=== PATIENT | male | born 1965 | race American Indian/Alaskan Native ===

== ENCOUNTER 2017-12-03 07:54 | Inpatient (IN) | payer MEDICARE, MEDICAID ==
[2017-12-03 07:54] VITALS: BMI 33.9
[2017-12-03] MEDS ORDERED: Sodium Chloride 0.9% 1,000 ML IV ONE (08:55)
[2017-12-03 09:19] LABS: BASO # 0.1 K/uL (0.0-0.2); EOS # 0.5 K/uL (0.0-0.7); EOS % 8.7 % (0.0-4.0); HEMOGLOBIN 13.8 g/dL (12.0-18.0); LYMPH # 1.2 K/uL (1.0-4.3); LYMPH % 20.5 % (20.0-40.0); MEAN CELL VOLUME 94.5 fL (80.0-94.0); MEAN CORPUSCULAR HEMOGLOBIN 31.7 pg (27.0-31.0); MEAN CORPUSCULAR HGB CONC 33.5 g/dL (33.0-37.0); MEAN PLATELET VOLUME 7.4 fL (7.2-11.7); MONO # 0.7 K/uL (0.0-0.8); MONO % 12.7 % (0.0-10.0); NEUT # 3.3 K/uL (1.8-7.0); NEUT % 57.1 % (50.0-75.0); RBC 4.34 Mil/uL (4.40-5.90); RED CELL DISTRIBUTION WIDTH 14.5 % (11.5-14.5); WHITE BLOOD COUNT 5.8 K/uL (4.8-10.8)
[2017-12-03 09:33] LABS: ALBUMIN 4.1 g/dL (3.5-5.0); ALT/SGPT 54 U/L (21-72); AST/SGOT 100 U/L (17-59); BLOOD UREA NITROGEN 12 mg/dL (9-20); GFR AFRICAN-AMERICAN > 60; GFR NON-AFRICAN AMERICAN > 60; LIPASE 31 U/L (23-300)
--- NOTE | 2017-12-03 09:35 | RAD ---
PROCEDURE: Radiographs of the chest and abdomen (obstructive series) HISTORY: vomiting COMPARISON: CT abdomen and pelvis 10/30/2013 TECHNIQUE: AP radiograph of the chest, with upright and supine radiographs of the abdomen. FINDINGS: CHEST: Lungs: Clear. Cardiovascular: Normal size heart. No pulmonary vascular congestion. Pleura: No pleural fluid. No pneumothorax. Other findings: None. ABDOMEN AND PELVIS: Bowel: Stool retention.. No evidence of mechanical obstruction. Free air: None. Bones: Bilateral sacroiliac mild sclerosis Other findings: IVC filter similar. Below this is an interval vascular stent IMPRESSION: Moderate stool retention. No mechanical obstruction The crescentic left hemidiaphragmatic air/gas is probably a small amount of gas within stomach. If clinically indicated, noncontrast CT abdomen-pelvis would be more sensitive in excluding any free air. Recommendations per clinical suspicions
[2017-12-03 09:40] LABS: B-TYPE NATRIURETIC PEPTIDE 19.4 pg/mL (0-900)
[2017-12-03 10:31] LABS: SQUAMOUS EPITHIAL < 1 /hpf (0-5); URINE BACTERIA RARE (<OCC); URINE BILIRUBIN 1+ (NEGATIVE); URINE BLOOD 2+ (NEGATIVE); URINE CALCIUM OXALATE CRYSTALS OCC /hpf (<OCC); URINE CLARITY Hazy (Clear); URINE GLUCOSE (UA) NORMAL (Normal); URINE LEUKOCYTE ESTERASE NEG Leu/uL (Negative); URINE PROTEIN 1+ mg/dL (NEGATIVE)
[2017-12-03 10:47] LABS: BARBITURATES, UR NEGATIVE (NEGATIVE); PHENCYCLIDINE, UR NEGATIVE (NEGATIVE)
[2017-12-03 10:54] LABS: URINE COLOR YELLOW (YELLOW)
[2017-12-03 11:16] LABS: BENZODIAZEPINES, UR POSITIVE (NEGATIVE); OPIATES, UR POSITIVE (NEGATIVE)
--- NOTE | 2017-12-03 11:31 | C.PDOC ---
History Of Present Illness 52yo male, presents to ER requesting detox from alcohol and heroin. Admits last sniffed heroin yesterday and now he is withdrawing. Patient reports associated nausea, vomiting, bodyaches, and sweats. He states his presentation today is similar to past episodes of withdrawal. He offers no other complaints. Time Seen by Provider: 12/03/17 08:36 Chief Complaint (Nursing): Abdominal Pain History Per: Patient History/Exam Limitations: no limitations Onset/Duration Of Symptoms: Days Current Symptoms Are (Timing): Still Present Past Medical History Reviewed: Historical Data, Nursing Documentation, Vital Signs Vital Signs: Last Vital Signs Temp 97.7 F 12/05/17 06:30 Pulse 70 12/05/17 06:30 Resp 18 12/05/17 06:30 BP 108/69 12/05/17 06:30 Pulse Ox 98 12/05/17 06:30 - Medical History PMH: Anxiety, Bipolar Disorder, Depression, Diabetes, Deep Vein Thrombosis, Hepatitis (C), HTN, Hypercholesterolemia, Schizophrenia Denies: HIV, Chronic Kidney Disease, Seizures, Sexually Transmitted Disease - [facility] Procedures CONTRAST PHLEBOGRAM-LEG (07/08/13) HEMODIALYSIS (10/28/13) INJECT/INFUSE THROMBOLYTIC AGENT (10/24/13) PLICATION OF VENA CAVA (06/13/13) Family History: States: Unknown Family Hx - Social History Hx Tobacco Use: Yes Hx Alcohol Use: Yes Hx Substance Use: Yes - Immunization History Hx Tetanus Toxoid Vaccination: No Hx Influenza Vaccination: No Hx Pneumococcal Vaccination: No Review Of Systems Except As Marked, All Systems Reviewed And Found Negative. Constitutional: Positive for: Sweats, Other (bodyaches) Cardiovascular: Negative for: Chest Pain Respiratory: Negative for: Shortness of Breath Gastrointestinal: Positive for: Nausea, Vomiting Physical Exam - Physical Exam Appears: Non-toxic Skin: Warm, Dry Head: Atraumatic, Normacephalic Eye(s): bilateral: Normal Inspection Neck: Supple Chest: Symmetrical Cardiovascular: Rhythm Regular Respiratory: Normal Breath Sounds Gastrointestinal/Abdominal: Soft, No Tenderness Extremity: Normal ROM, Pedal Edema (1+ bilateral pitting pedal edema) Neurological/Psych: Oriented x3 ED Course And Treatment - Laboratory Results Result Diagrams: 12/03/17 09:14 12/03/17 09:14 ECG: Interpreted By Me, Viewed By Me ECG Rhythm: Sinus Rhythm Interpretation Of ECG: Normal intervals, normal axis, no ST/T wave changes Rate From EC O2 Sat by Pulse Oximetry: 97 (RA) Pulse Ox Interpretation: Normal Medical Decision Making Medical Decision Making: Impression: Substance use, withdrawal Plan: -- Labs -- EKG -- IV fluids -- Zofran 4mg IV -- Protonix 40mg IV Progress: 10:00 Case discussed with crisis team who states detox bed is available. Patient is pending medical clearance. 1157 Labs reviewed and shows no clinically significant medical abnormalities. Patient medically cleared and now pending crisis evaluation. Disposition Discussed With : Amish Deshpande Doctor Will See Patient In The: Hospital Counseled Patient/Family Regarding: Studies Performed, Diagnosis - Disposition Disposition: HOSPITALIZED Disposition Time: 12:26 Condition: FAIR - Clinical Impression Clinical Impression: Opiate abuse, continuous, Alcohol abuse - Scribe Statement The provider has reviewed the documentation as recorded by the Scribe (Shakira Watt) Provider Attestation: All medical record entries made by the Scribe were at my direction and personally dictated by me. I have reviewed the chart and agree that the record accurately reflects my personal performance of the history, physical exam, medical decision making, and the department course for this patient. I have also personally directed, reviewed, and agree with the discharge instructions and disposition.
[2017-12-03] MEDS ORDERED: Aluminum Hydroxide/Magnesium Hydroxide Susp (30 mL) PO PRN (12:47)
--- NOTE | 2017-12-03 14:27 | PCM.BM ---
<Loida Champagne - Last Filed: 12/03/17 14:26> Treatment Plan Problems - Problems identified on initial assessmt Potential for opiate withdrawal Date Initiated: 12/03/17 Assessment reference: NA Treatment assets and liabiliti Patient Assests: self-reliant, negotiates basic needs Patient Liabilities: substance abuse - Milieu Protocol Maintain good personal hygiene: daily Encourage regular showers, daily Remind patient to perform daily oral care, daily Assist patient to perform ADL's, other Encourage regular showers, other Remind patient to perform daily oral care , other Assist patient to perform ADL's Maintain personal safety: daily Educate patient to report safety concerns to staff, daily Monitor environment for contraband/sharps, other Educate patient to report safety concerns to staff, other Monitor environment for contraband/ sharps Medication safety: Monitor for expected outcome, potential side effects: other, daily, Assess barriers to learning: other, daily, Assess readiness for medication education: other, daily <Amish Deshpande - Last Filed: 12/04/17 08:33> - Diagnosis (1) Opiate abuse, continuous Status: Acute Interventions: 12/04/17 08:33 * Assess 7x/week regarding severity of withdrawal * Educate regarding risks, benefits, side effects and alternatives of medications * Use Motivational Interviewing for abstinence * Use CBT for relapse prevention * Medication management for withdrawal symptoms * Encourage medication assisted treatment *
--- NOTE | 2017-12-03 14:34 | PCM.PSYCH ---
Initial Psychiatric Evaluation - Initial Psychiatric Evaluation Type of Admission: Voluntary Legal Status: Capacity Chief Complaint (in patient's own words): "I'm withdrawing" History of Present Illness and Precipitating Events: The patient is seen, chart reviewed and case discussed. This is a 52-year-old -Italian male, single with 3 children, lives with mother and unemployed. The patient is using Xanax 3 sticks a day; 6 mg per day. He also uses 8 bags heroin intranasally. He said he started "about 20-30 years ago." He was in detox 3 times in the past but no rehabilitation. He says he was on methadone maintenance in [place] and his dose was 80 mg, but it was 5 years ago. He denies other drug and alcohol use. Past psych history: He was diagnosed with bipolar disorder and hospitalized once , "long ago." He uses Seroquel up to 300 mg a day. Howveer, he does not report any manic episodes, and he is likely misdiagnosed. He, however, endorse past history of depression and is still somewhat depressed b/c of "drug use." He also reports anxiety. Medical history: He had blood clots (DVT) in the past and is on Xarelta. No other illness and he is stable and uneventful with the medication regimen. Family psych history: Fa used heroin, mo had mental illness. Current Medications: Active Medications Generic Name Dose Route Start Last Admin Trade Name Freq PRN Reason Stop Dose Admin Al Hydrox/Mg Hydrox/Simethicone 30 ml 12/03/17 12:47 Maalox 30 Ml PO TID PRN Indigestion / Heartburn Chlordiazepoxide 25 mg 12/03/17 14:00 Librium PO 12/08/17 13:59 Q6H HEIDI Taper Chlordiazepoxide 25 mg 12/03/17 12:45 Librium PO Q4H PRN Alcohol Withdrawal Clonidine HCl 0.1 mg 12/03/17 12:45 Catapres PO Q4H PRN Symptoms of alcohol withdrawl Folic Acid 1 mg 12/03/17 12:45 Folic Acid PO DAILY HEIDI Hydroxyzine HCl 50 mg 12/03/17 12:48 Atarax PO Q6H PRN Anxiety Ibuprofen 600 mg 12/03/17 12:48 Motrin Tab PO Q6H PRN Pain, moderate (4-7) Loperamide HCl 2 mg 12/03/17 12:47 Imodium PO Q8 PRN Diarrhea Methadone HCl 25 mg 12/03/17 15:00 Methadone PO 12/03/17 15:01 ONCE ONE Multivitamins 1 tab 12/03/17 12:45 Hexavitamin PO DAILY [facility] Ondansetron HCl 4 mg 12/03/17 12:47 Zofran Tab PO Q8 PRN Nausea/Vomiting Thiamine HCl 100 mg 12/03/17 12:45 Vitamin B1 Tab PO DAILY HEIDI Trazodone HCl 100 mg 12/03/17 22:00 Desyrel PO HS HEIDI Past Psychiatric History - Past Psychiatric History Previous Treatment History: Inpatient Pertinent Medical Hx (Current Medical&Sleep Prob, Allergies): Allergies Allergy/AdvReac Type Severity Reaction Status Date / Time ibuprofen [From Motrin] Allergy Intermediate Verified 12/03/17 08:12 tomato Allergy Intermediate Verified 12/03/17 08:12 SEROquel 12/03/17 Xarelto 12/03/17 traZODone 12/03/17 Review of Systems - Psychiatric Psychiatric: Abnormal Sleep Pattern, Anxiety, Difficulty Concentrating. absent : Hallucinations, Homicidal Ideation, Paranoia, Suicidal Ideation Mental Status Examination - Personal Presentation Personal Presentation: Looks stated age - Affect Affect: Constricted - Motor Activity Motor Activity: Calm - Reliability in Providing Information Reliability in Providing Information: Good - Speech Speech: Organized - Mood Mood: Anxious - Formal Thought Process Formal Thought Process: No Impairment - Cognitive Functions Orientation: Person, Place, Situation, Time Sensorium: Alert Attention/Concentration: Easily distracted Estimate of Intelligence: Average Judgement: Intact, as evidence by: Insight regarding need for hospitalization Memory: Recent intact, as evidence by: Ability to recall events of the day, Remote intact, as evidenced by: Abilit to recall sig. 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 Attend groups and activities Supportive therapy and psychoeducation [place] for abstinence CBT for relapse prevention Encourage MAT Refer to rehab or IOP, and self-help groups Smoking cessation with [place] Nicotine patch if needed 34 min Projected ELOS: 5-6 days Prognosis: good with treatment, incl. MAT or rehab - Smoking Cessation Smoking Cessation Initiated: Yes
[2017-12-03] MEDS: Multiple Vitamins Tab PO SCH (21:06)
[2017-12-04] MEDS: Multiple Vitamins Tab PO SCH (09:31)
--- NOTE | 2017-12-04 13:39 | PCM.PYCHPN ---
Psychiatric Progress Note - Psychiatric Progress Note Patient seen today, length of contact: 19 minutes Patient Chief Complaint: "I'm not well" Problems Identified/Issues Discussed: The pt is seen, chart reviewed, case discussed with staff. The pt is compliant with medications and reports no side-effects. Symptoms are improving but needs more time to stabilize. After care discussed, support and psychoeducation given. He said he was rejected by several rehabs because of his blood thinner. Diagnoses of bipolar disorder is also reviewed and he is likely not bipolar. Remeron it is for ongoing depressive symptoms. Medication Change: Yes (Detox changes daily) Medical Record Reviewed: Yes Mental Status Examination - Cognitive Function Orientation: Person, Place, Situation, Time Memory: Impaired Attention: Poor Concentration: Poor Association: WNL Fund of Knowledge: WNL - Mood Mood: Anxious - Affect Affect: Constricted - Speech Speech: Appropriate - Formal Thought Process Formal Thought Process: No Impairment - Suicidal Ideation Suicidal Ideation: No - Homicidal Ideation Homicidal Ideation: No Goal/Treatment Plan - Goal/Treatment Plan Need for Continued Stay: Discharge may exacerbated symptoms, Severe functional impairment Progress Toward Problem(s) and Goals/Treatment Plan: Taper with methadone and librium Gabapentin for augmentation and anxiety Seroquel 200 and remeron 15 (later 30 mg) for depression and insomnia As needed medications All risks, benefits and alternatives of the meds discussed, and the pt agreed and understood. Attend groups and activities Supportive therapy and psychoeducation [place] for abstinence CBT for relapse prevention Encourage MAT Refer to rehab or IOP, and self-help groups Smoking cessation with [place] Nicotine patch if needed Estimated Date of D/C: 12/08/17 - Smoking Cessation Smoking Cessation Initiated: Yes
[2017-12-05] MEDS: Multiple Vitamins Tab PO SCH (10:31)
--- NOTE | 2017-12-05 10:43 | PCM.PYCHPN ---
Psychiatric Progress Note - Psychiatric Progress Note Patient seen today, length of contact: 16 minutes Patient Chief Complaint: "I still have withdrawal symptoms" Problems Identified/Issues Discussed: The pt is seen, chart reviewed, case discussed with staff. The pt is compliant with medications and reports no side-effects. Symptoms are improving but needs more time to stabilize. After care discussed, support and psychoeducation given. Diagnostic Results: Opioid use disorder, severe, dependence, Opioid withdrawal symptoms Hypnotic/Sedative use disorder, Medication Change: Yes (Detox changes daily) Medical Record Reviewed: Yes Mental Status Examination - Cognitive Function Orientation: Person, Place, Situation, Time Memory: Impaired Attention: Poor Concentration: Poor Association: WNL Fund of Knowledge: WNL Decription of patient's judgement and insights: fair/fair - Mood Mood: Anxious - Affect Affect: Constricted - Speech Speech: Appropriate - Formal Thought Process Formal Thought Process: No Impairment Psychotic Thoughts and Behaviors: denied - Suicidal Ideation Suicidal Ideation: No Plan: denied - Homicidal Ideation Homicidal Ideation: No Goal/Treatment Plan - Goal/Treatment Plan Need for Continued Stay: Discharge may exacerbated symptoms, Severe functional impairment Progress Toward Problem(s) and Goals/Treatment Plan: Continue current management and medications. Patient educated about risks, benefits, side effects & alternatives of meds. Pt verbalized understanding & agreed with the above. Therapy in milieu. Estimated Date of D/C: 12/08/17
--- NOTE | 2017-12-05 12:07 | CARD ---
APPROVED REPORT EKG Measurement Heart [id number] <Conclusion> Normal sinus rhythm Normal ECG
[2017-12-06] MEDS: Multiple Vitamins Tab PO SCH (09:54)
--- NOTE | 2017-12-06 10:31 | PCM.PYCHPN ---
Psychiatric Progress Note - Psychiatric Progress Note Patient seen today, length of contact: 16 minutes Patient Chief Complaint: "I little better than yesterday" Problems Identified/Issues Discussed: The pt is seen, chart reviewed, case discussed with staff. The pt is compliant with medications. He denied side-effects. Symptoms are improving but needs more time to stabilize. He wants to discharge to rehab program. After care discussed, support and psychoeducation given. Diagnostic Results: Opioid use disorder, severe, dependence, Opioid withdrawal symptoms Hypnotic/Sedative use disorder, Medication Change: Yes (Detox changes daily) Medical Record Reviewed: Yes Mental Status Examination - Cognitive Function Orientation: Person, Place, Situation, Time Memory: Impaired Attention: Poor Concentration: Poor Association: WNL Fund of Knowledge: WNL Decription of patient's judgement and insights: fair/good - Mood Mood: Anxious - Affect Affect: Constricted - Speech Speech: Appropriate - Formal Thought Process Formal Thought Process: No Impairment Psychotic Thoughts and Behaviors: denied - Suicidal Ideation Suicidal Ideation: No Plan: denied - Homicidal Ideation Homicidal Ideation: No Plan: denied Goal/Treatment Plan - Goal/Treatment Plan Need for Continued Stay: Discharge may exacerbated symptoms, Severe functional impairment Progress Toward Problem(s) and Goals/Treatment Plan: Continue current management and medications. Patient educated about risks, benefits, side effects & alternatives of meds. Pt verbalized understanding & agreed with the above. Therapy in milieu. Estimated Date of D/C: 12/08/17
[2017-12-06] MEDS ORDERED: Propofol 10 mg/ml Inj (20 ML) ONE (19:31)
[2017-12-06] MEDS ORDERED: Midazolam 2 MG/2 ML VIAL ONE (19:31)
[2017-12-06] MEDS ORDERED: Succinylcholine Chloride 20 mg/ml Syr (5 ml) IV ONE (19:32)
[2017-12-06] MEDS ORDERED: Rocuronium 10 mg/ml (5 ml) ONE ×2 (19:32→20:26)
[2017-12-06] MEDS ORDERED: Neostigmine Methylsulfate 3mg/3ml Syringe IV ONE (20:36)
[2017-12-07] MEDS: Multiple Vitamins Tab PO SCH (10:54)
--- NOTE | 2017-12-07 14:37 | PCM.PYCHPN ---
Psychiatric Progress Note - Psychiatric Progress Note Patient seen today, length of contact: 16 minutes Patient Chief Complaint: "I still need help but I am getting better" Problems Identified/Issues Discussed: Patient is seen and evaluated, chart reviewed, and discussed with nurse. Patient is feeling better in terms of his mood but still complains of mild depression. He has been sleeping well and eating well. His withdrawal symptoms are improving. Patient still intends on going to senior care rehab. Patient denies suicidal and homicidal ideations. Patient continues to go to group activities. Patient is taking medications and denies any side effects. Supportive therapy and psychoeducation were given. After care discussed. Medication Change: Yes (Detox changes daily) Medical Record Reviewed: Yes Mental Status Examination - Cognitive Function Orientation: Person, Place, Situation, Time Memory: Impaired Attention: Poor Concentration: Poor Association: WNL Fund of Knowledge: WNL - Mood Mood: Anxious - Affect Affect: Constricted - Speech Speech: Appropriate - Formal Thought Process Formal Thought Process: No Impairment - Suicidal Ideation Suicidal Ideation: No - Homicidal Ideation Homicidal Ideation: No Goal/Treatment Plan - Goal/Treatment Plan Need for Continued Stay: Discharge may exacerbated symptoms, Severe functional impairment Progress Toward Problem(s) and Goals/Treatment Plan: Taper with methadone and librium Gabapentin for augmentation and anxiety Seroquel 200 and remeron 15 (later 30 mg) for depression and insomnia As needed medications All risks, benefits and alternatives of the meds discussed, and the pt agreed and understood. Attend groups and activities Supportive therapy and psychoeducation [place] for abstinence CBT for relapse prevention Encourage MAT Refer to rehab or IOP, and self-help groups Smoking cessation with [place] Nicotine patch if needed Estimated Date of D/C: 12/08/17
[2017-12-07 16:20] VITALS: RESP 18
[2017-12-08] MEDS: Multiple Vitamins Tab PO SCH (09:51)
--- NOTE | 2017-12-08 13:00 | PCM.PYCHPN ---
Psychiatric Progress Note - Psychiatric Progress Note Patient seen today, length of contact: 16 minutes Patient Chief Complaint: "I am very nervous" Problems Identified/Issues Discussed: The pt is seen, chart reviewed, case discussed with staff. The pt is compliant with medications and reports no side-effects. Symptoms are improving but needs more time to stabilize. After care discussed, support and psychoeducation given. Medication Change: Yes (Detox changes daily) Medical Record Reviewed: Yes Mental Status Examination - Cognitive Function Orientation: Person, Place, Situation, Time Memory: Impaired Attention: WNL Concentration: Poor Association: WNL Fund of Knowledge: WNL - Mood Mood: Anxious - Affect Affect: Constricted - Speech Speech: Appropriate - Formal Thought Process Formal Thought Process: No Impairment - Suicidal Ideation Suicidal Ideation: No - Homicidal Ideation Homicidal Ideation: No Goal/Treatment Plan - Goal/Treatment Plan Need for Continued Stay: Discharge may exacerbated symptoms, Severe functional impairment Progress Toward Problem(s) and Goals/Treatment Plan: Taper with methadone and librium Gabapentin for augmentation and anxiety Seroquel 200 and remeron 30 mg for depression and insomnia As needed medications All risks, benefits and alternatives of the meds discussed, and the pt agreed and understood. Attend groups and activities Supportive therapy and psychoeducation [place] for abstinence CBT for relapse prevention Encourage MAT Refer to rehab or IOP, and self-help groups Smoking cessation with [place] Nicotine patch if needed Estimated Date of D/C: 12/08/17
[2017-12-09 05:37] VITALS: TEMP 97.6
--- NOTE | 2017-12-09 08:37 | PCM.PYCHDC ---
Mental Status Examination - Mental Status Examination Orientation: Person, Place, Situation, Time Memory: Intact Mood: Anxious Affect: Constricted Speech: Appropriate Attention: WNL Concentration: WNL Association: WNL Fund of Knowledge: WNL Formal Thought Process: No Impairment Suicidal Ideation: No Current Homicidal Ideation?: No Discharge Summary - Discharge Note Reason for Hospitalization: Opioid detox Consultations:: List each consultation separately and include: 1. Reason for request. 2. Findings. 3. Follow-up Summary of Hospital Course include:: 1. Description of specific treatment plan utilized for patients during their course of treatmen. 2. Summarize the time- course for resolution of acute symptoms and/or regressed behaviors. 3. Describe issues identified and worked on during hospitalization. 4. Describe medication utilized. 5. Describe medical problems identified and treated. 6. Reassessment of suicide risk Summary of Hospital Course: The patient is seen, chart reviewed and case discussed. On admission: This is a 52-year-old -[place]izen [place] male, single with 3 children, lives with mother and unemployed. The patient is using Xanax 3 sticks a day; 6 mg per day. He also uses 8 bags heroin intranasally. He said he started "about 20-30 years ago." He was in detox 3 times in the past but no rehabilitation. He says he was on methadone maintenance in [place] and his dose was 80 mg, but it was 5 years ago. He denies other drug and alcohol use. Past psych history: He was diagnosed with bipolar disorder and hospitalized once , "long ago." He uses Seroquel up to 300 mg a day. Howveer, he does not report any manic episodes, and he is likely misdiagnosed. He, however, endorse past history of depression and is still somewhat depressed b/c of "drug use." He also reports anxiety. Medical history: He had blood clots (DVT) in the past and is on Xarelto. No other illness and he is stable and uneventful with the medication regimen. Family psych history: Fa used heroin, mo had mental illness. Hospital course: The pt was admitted and started on treatment with psychotherapy, support, psychoeducation and medications. [place] and CBT used. The pt attended groups and activities, as well as milieu therapy. All the risks and benefits of medications are discussed and the patient understood and agreed. The pt improved with the treatments provided. After care discussed with the patient. Pt will go to [facility]. 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 Follow after care plan as discussed. Use relapse prevention skills Return to ER or call 911 if suicidal, homicidal or symptoms relapse. Stay away from stress, alcohol and drugs. See primary doctor regularly and get labs. Prescriptions/Medication Reconciliation: Mirtazapine [Remeron] 30 mg PO HS #30 tab QUEtiapine [SEROquel] 200 mg PO HS #30 tab Rivaroxaban [Xarelto] 20 mg PO DAILY #30 tab - Smoking Cessation Smoking Cessation Medication prescribed: No - Antipsychotic Medications Pt discharged on 2 or more routine antipsychotic medications: No
[2017-12-09 09:06] VITALS: BP 127/87; PULSE 74; O2SAT 97
[2017-12-09] MEDS: Multiple Vitamins Tab PO SCH (09:21)
== END 2017-12-09 10:30 | disposition home or self-care (01) | DRG 885 ==
LOC: C.ER 07:54 → C.7D 12:26
PROVIDERS: ADMIT Psychiatry & Neurology Psychiatry; ATTEND Psychiatry & Neurology Psychiatry
PROC: HZ2ZZZZ Detoxification Services for Substance Abuse Treatment (ICD-10-PCS; principal; 2017-12-03)
DX: F33.1 Major depressive disorder, recurrent, moderate (principal); F11.23 Opioid dependence with withdrawal; F41.9 Anxiety disorder, unspecified; G47.00 Insomnia, unspecified; I10 Essential (primary) hypertension; Z87.891 Personal history of nicotine dependence; F31.9 Bipolar disorder, unspecified; F10.10 Alcohol abuse, uncomplicated; E78.00 Pure hypercholesterolemia, unspecified; E11.9 Type 2 diabetes mellitus without complications; F19.10 Other psychoactive substance abuse, uncomplicated

== ENCOUNTER 2018-01-06 20:08 | Inpatient (IN) | payer MEDICARE, OTHER ==
[2018-01-06 20:09] VITALS: BMI 33.9
[2018-01-06] MEDS ORDERED: Sodium Chloride 0.9% 1,000 ML IV ONE (20:55)
--- NOTE | 2018-01-06 20:58 | C.PDOC ---
History Of Present Illness 52 year old male patient with a PMHx of diabetes and heroin abuse presents to the ER with complaints of painful, swollen legs. Patient reports that he can not walk properly and did not check his glucose and is not sure if it is high. His last heroin use was this morning. Patient denies fever, chills, dizziness, or abdominal pain. Time Seen by Provider: 01/06/18 20:51 Chief Complaint (Nursing): Lower Extremity Problem/Injury History Per: Patient History/Exam Limitations: no limitations Onset/Duration Of Symptoms: Hrs - Ankle/Foot Currently Unable To: Other (walk properly) Past Medical History Reviewed: Historical Data, Nursing Documentation, Vital Signs Vital Signs: Last Vital Signs Temp 99.6 F 01/06/18 22:54 Pulse 96 H 01/06/18 22:54 Resp 16 01/06/18 22:54 BP 141/96 H 01/06/18 22:54 Pulse Ox 96 01/06/18 22:54 - Medical History PMH: Anxiety, Bipolar Disorder, Depression, Diabetes, Deep Vein Thrombosis, Hepatitis (C), HTN, Hypercholesterolemia, Schizophrenia - [facility] Procedures CONTRAST PHLEBOGRAM-LEG (07/08/13) DETOXIFICATION SERVICES FOR SUBSTANCE ABUSE TREATMENT (12/03/17) HEMODIALYSIS (10/28/13) INJECT/INFUSE THROMBOLYTIC AGENT (10/24/13) PLICATION OF VENA CAVA (06/13/13) Family History: States: Unknown Family Hx - Social History Hx Tobacco Use: Yes Hx Alcohol Use: Yes Hx Substance Use: Yes - Immunization History Hx Tetanus Toxoid Vaccination: No Hx Influenza Vaccination: No Hx Pneumococcal Vaccination: No Review Of Systems Constitutional: Negative for: Fever, Chills Gastrointestinal: Negative for: Abdominal Pain Musculoskeletal: Positive for: Other (bilateral swollen, painful legs) Neurological: Negative for: Dizziness Physical Exam - Physical Exam Appears: Non-toxic, No Acute Distress Skin: Normal Color, Warm, Dry Head: Atraumatic, Normacephalic Eye(s): bilateral: Normal Inspection Nose: Normal Oral Mucosa: Moist Neck: Normal ROM, Supple Chest: Symmetrical, No Deformity Cardiovascular: Rhythm Regular Respiratory: Normal Breath Sounds, No Rales, No Rhonchi, No Wheezing Gastrointestinal/Abdominal: Soft, No Tenderness Extremity: Tenderness (diffuse tendernss), Swelling (swelling on both legs up to the groin area. Left leg is worse than right leg. ) Pulses: Left Dorsalis Pedis: Normal, Right Dorsalis Pedis: Normal Neurological/Psych: Oriented x3, Normal Speech Gait: Steady ED Course And Treatment - Laboratory Results Result Diagrams: 01/06/18 21:07 01/06/18 21:06 Lab Interpretation: No Acute Changes O2 Sat by Pulse Oximetry: 100 (RA) Pulse Ox Interpretation: Normal - Physician Consult Information Time Consulting Physician Contacted: 22:57 Physician Contacted: Merle Napier Outcome Of Conversation: Patient to be admitted for bilateral cellulitis of lower extremities. Medical Decision Making Medical Decision Making: Impression: bilaterally swollen and painful legs. Plan: -- blood work -- drug screen -- IV fluids -- UA -- pending sobriety Disposition - Disposition Disposition: HOSPITALIZED Disposition Time: 22:57 Condition: STABLE - POA Present On Arrival: None - Clinical Impression Clinical Impression: Heroin abuse, Diabetes, Bilateral cellulitis of lower leg - Scribe Statement The provider has reviewed the documentation as recorded by the Aiyana Mayfield Do Provider Attestation: All medical record entries made by the Aiyana were at my direction and personally dictated by me. I have reviewed the chart and agree that the record accurately reflects my personal performance of the history, physical exam, medical decision making, and the department course for this patient. I have also personally directed, reviewed, and agree with the discharge instructions and disposition.
[2018-01-06 21:13] LABS: BASO # 0.1 K/uL (0.0-0.2); BASO % 1.1 % (0.0-2.0); EOS # 0.5 K/uL (0.0-0.7); EOS % 8.1 % (0.0-4.0); HEMOGLOBIN 13.2 g/dL (12.0-18.0); LYMPH # 1.1 K/uL (1.0-4.3); LYMPH % 18.1 % (20.0-40.0); MEAN CELL VOLUME 94.8 fL (80.0-94.0); MEAN CORPUSCULAR HEMOGLOBIN 32.1 pg (27.0-31.0); MEAN CORPUSCULAR HGB CONC 33.9 g/dL (33.0-37.0); MEAN PLATELET VOLUME 6.6 fL (7.2-11.7); MONO # 0.7 K/uL (0.0-0.8); MONO % 11.7 % (0.0-10.0); NEUT # 3.7 K/uL (1.8-7.0); NRBC % 0.1 % (0.0-2.0); RBC 4.12 Mil/uL (4.40-5.90); RED CELL DISTRIBUTION WIDTH 15.2 % (11.5-14.5)
[2018-01-06] MEDS ORDERED: Sodium Chloride 0.9% 1,000 ML ONE (21:17)
[2018-01-06 21:21] LABS: VENOUS BLOOD GAS BASE EXCESS 0.4 mmol/L (0.0-2.0); VENOUS BLOOD GAS PCO2 57 mmHg (40-60); VENOUS BLOOD GAS PO2 23 mm/Hg (30-55)
[2018-01-06 21:27] LABS: ALB/GLOB RATIO 1.3 (1.0-2.1); ALBUMIN 4.3 g/dL (3.5-5.0); ALT/SGPT 33 U/L (21-72); AST/SGOT 30 U/L (17-59); BLOOD UREA NITROGEN 10 mg/dL (9-20); CALCIUM 8.8 mg/dl (8.6-10.4); GFR AFRICAN-AMERICAN > 60; GFR NON-AFRICAN AMERICAN > 60
[2018-01-07] MEDS: Dextrose 5%/0.45% NS 1,000 ML IV SCH ×2 (01:01→15:23)
[2018-01-07] MEDS: Vancomycin 1 gm/NS 200 ml 1 GM/200 ML BAG IVPB SCH (01:30)
[2018-01-07 01:46] VITALS: RESP 20
[2018-01-07] MEDS: Piperacill/Tazo 3.375gm in Dex 3.375 GM/50 ML BAG IVPB SCH ×3 (05:24→21:28)
[2018-01-07] MEDS ORDERED: (Novolog) Insulin Aspart, Recombinant 100 u/ml 10 ml vial SC SCH (07:30)
[2018-01-07] MEDS: (Novolog) Insulin Aspart, Recombinant 100 u/ml 10 ml vial SC SCH ×4 (07:30→21:24)
[2018-01-07] MEDS: Pantoprazole 40 mg EC Tab PO SCH (11:46)
[2018-01-07] MEDS: Enoxaparin 40 mg Syringe SC SCH ×2 (11:53→12:27)
--- NOTE | 2018-01-07 13:40 | CP.PCM.HP ---
Past Patient History - Infectious Disease Hx of Infectious Diseases: None - Past Medical History & Family History Past Medical History?: Yes - Past Social History Smoking Status: Light Smoker < 10 Cigarettes Daily - CARDIAC Hx Cardiac Disorders: Yes Hx Hypercholesterolemia: Yes Hx Hypertension: Yes - PULMONARY Hx Respiratory Disorders: No Hx Tuberculosis: No - NEUROLOGICAL Hx Neurological Disorder: No Hx Seizures: No - HEENT Hx HEENT Problems: No - RENAL Hx Chronic Kidney Disease: No - ENDOCRINE/METABOLIC Hx Endocrine Disorders: Yes (DMII) Hx Diabetes Mellitus Type 2: Yes - HEMATOLOGICAL/ONCOLOGICAL Hx Blood Disorders: No Hx Human Immunodeficiency Virus (HIV): No - INTEGUMENTARY Hx Dermatological Problems: No - MUSCULOSKELETAL/RHEUMATOLOGICAL Hx Musculoskeletal Disorders: Yes Hx Falls: Yes - GASTROINTESTINAL Hx Gastrointestinal Disorders: No - GENITOURINARY/GYNECOLOGICAL Hx Genitourinary Disorders: No Hx Sexually Transmitted Disorders: No - PSYCHIATRIC Hx Psychophysiologic Disorder: Yes Hx Anxiety: Yes Hx Substance Use: Yes (Heroine) - SURGICAL HISTORY Hx Surgeries: Yes Hx Vascular Surgery: Yes Hx Vascular Access Device: Yes - ANESTHESIA Hx Anesthesia: Yes Hx Anesthesia Reactions: No Hx Malignant Hyperthermia: No Meds Allergies/Adverse Reactions: Allergies Allergy/AdvReac Type Severity Reaction Status Date / Time ibuprofen [From Motrin] Allergy Intermediate Verified 01/06/18 20:17 tomato Allergy Intermediate Verified 01/06/18 20:17 Physical Exam - Constitutional Appears: Well - Head Exam Head Exam: ATRAUMATIC, NORMAL INSPECTION, NORMOCEPHALIC - Eye Exam Eye Exam: EOMI, Normal appearance, PERRL Pupil Exam: NORMAL ACCOMODATION, PERRL - ENT Exam ENT Exam: Mucous Membranes Moist, Normal Exam - Neck Exam Neck exam: Positive for: Normal Inspection - Respiratory Exam Respiratory Exam: Decreased Breath Sounds - Cardiovascular Exam Cardiovascular Exam: REGULAR RHYTHM, +S1, +S2 - GI/Abdominal Exam GI & Abdominal Exam: Diminished Bowel Sounds, Soft - Rectal Exam Rectal Exam: Deferred Results - Vital Signs Recent Vital Signs: Last Vital Signs Temp 98.2 F 01/07/18 08:25 Pulse 81 01/07/18 08:25 Resp 20 01/07/18 08:25 BP 126/80 01/07/18 08:25 Pulse Ox 97 01/07/18 08:25 - Labs Result Diagrams: 01/06/18 21:07 01/06/18 21:06 Labs: Laboratory Results - last 24 hr 01/06/18 01/06/18 01/06/18 21:06 21:07 21:15 WBC 6.0 RBC 4.12 L Hgb 13.2 Hct 39.1 MCV 94.8 H MCH 32.1 H MCHC 33.9 RDW 15.2 H Plt Count 218 MPV 6.6 L Neut % (Auto) 61.0 Lymph % (Auto) 18.1 L Hunt % (Auto) 11.7 H Eos % (Auto) 8.1 H Baso % (Auto) 1.1 Neut # (Auto) 3.7 Lymph # (Auto) 1.1 Hunt # (Auto) 0.7 Eos # (Auto) 0.5 Baso # (Auto) 0.1 pO2 23 L VBG pH 7.30 L VBG pCO2 57 VBG HCO3 23.5 VBG Total CO2 29.7 H VBG O2 Sat (Calc) 46.3 VBG Base Excess 0.4 VBG Potassium 3.8 Glucose 125 H Lactate 1.3 Sodium 143 139.0 Potassium 4.1 Chloride 103 106.0 Carbon Dioxide 28 Anion Gap 16 BUN 10 Creatinine 1.0 Est GFR ( Amer) > 60 Est GFR (Non-Af Amer) > 60 POC Glucose (mg/dL) Random Glucose 129 H Calcium 8.8 Total Bilirubin 0.8 AST 30 ALT 33 Alkaline Phosphatase 79 Total Protein 7.7 Albumin 4.3 Globulin 3.4 Albumin/Globulin Ratio 1.3 Venous Blood Potassium 3.8 Alcohol, Quantitative < 10 01/07/18 01/07/18 07:10 11:03 WBC RBC Hgb Hct MCV MCH MCHC RDW Plt Count MPV Neut % (Auto) Lymph % (Auto) Hunt % (Auto) Eos % (Auto) Baso % (Auto) Neut # (Auto) Lymph # (Auto) Hunt # (Auto) Eos # (Auto) Baso # (Auto) pO2 VBG pH VBG pCO2 VBG HCO3 VBG Total CO2 VBG O2 Sat (Calc) VBG Base Excess VBG Potassium Glucose Lactate Sodium Potassium Chloride Carbon Dioxide Anion Gap BUN Creatinine Est GFR ( Amer) Est GFR (Non-Af Amer) POC Glucose (mg/dL) 119 H 157 H Random Glucose Calcium Total Bilirubin AST ALT Alkaline Phosphatase Total Protein Albumin Globulin Albumin/Globulin Ratio Venous Blood Potassium Alcohol, Quantitative
--- NOTE | 2018-01-07 19:08 | CP.PCM.CON ---
History of Present Illness - History of Present Illness History of Present Illness: 52 year old male patient with a PMHx of diabetes and heroin abuse presents to the ER with complaints of painful, swollen legs. Patient reports that he can not walk properly and did not check his glucose and is not sure if it is high. His last heroin use was this morning. Patient denies fever, chills, dizziness, or abdominal pain. ID consulted for antibiotic management - Medical History PMH: Anxiety, Bipolar Disorder, Depression, Diabetes, Deep Vein Thrombosis, Hepatitis (C), HTN, Hypercholesterolemia, Schizophrenia - [facility] Procedures CONTRAST PHLEBOGRAM-LEG (07/08/13) DETOXIFICATION SERVICES FOR SUBSTANCE ABUSE TREATMENT (12/03/17) HEMODIALYSIS (10/28/13) INJECT/INFUSE THROMBOLYTIC AGENT (10/24/13) PLICATION OF VENA CAVA (06/13/13) Review of Systems - Constitutional Constitutional: As Per HPI - EENT Eyes: absent: As Per HPI, Blind Spots, Blurred Vision, Change in Vision, Decreased Night Vision, Diplopia, Discharge, Dry Eye, Exophthalmos, Floaters, Irritation, Itchy Eyes, Loss of Peripheral Vision, Pain, Photophobia, Requires Corrective Lenses, Sees Flashes, Spots in Vision, Tunnel Vision, Other Visual Disturbances, Loss of Vision, Other Ears: absent: As Per HPI, Decreased Hearing, Ear Discharge, Ear Pain, Tinnitus, Abnormal Hearing, Disequilibrium, Dizziness, Other Nose/Mouth/Throat: absent: As Per HPI, Epistaxis, Nasal Congestion, Nasal Discharge, Nasal Obstruction, Nasal Trauma, Nose Pain, Post Nasal Drip, Sinus Pain, Sinus Pressure, Bleeding Gums, Change in Voice, Dental Pain, Dry Mouth, Dysphagia, Halitosis, Hoarsness, Lip Swelling, Mouth Lesions, Mouth Pain, Odynophagia, Sore Throat, Throat Swelling, Tongue Swelling, Facial Pain, Neck Pain, Neck Mass, Other - Cardiovascular Cardiovascular: absent: As Per HPI, Acrocyanosis, Chest Pain, Chest Pain at Rest , Chest Pain with Activity, Claudication, Diaphoresis, Dyspnea, Dyspnea on Exertion, Edema, Irregular Heart Rhythm, Pain Radiating to Arm/Neck/Jaw, Leg Edema, Leg Ulcers, Lightheadedness, Orthopnea, Palpitations, Paroxysmal Nocturnal Dyspnea, Pedal Edema, Radiating Pain, Rapid Heart Rate, Slow Heart Rate, Syncope, Other - Respiratory Respiratory: absent: As Per HPI, Cough, Dyspnea, Hemoptysis, Dyspnea on Exertion , Wheezing, Snoring, Stridor, Pain on Inspiration, Chest Congestion, Excessive Mucous Production, Change in Mucous Color, Pain with Coughing, Other - Gastrointestinal Gastrointestinal: absent: As Per HPI, Abdominal Pain, Belching, Bloating, Change in Bowel Habits, Change in Stool Character, Coffee Ground Emesis, Constipation, Cramping, Diarrhea, Dyspepsia, Dysphagia, Early Satiety, Excessive Flatus, Fecal Incontinence, Heartburn, Hematemesis, Hematochezia, Loose Stools, Melena, Nausea, Odynophagia, Temesmus, Vomiting, Other - Genitourinary Genitourinary: absent: As Per HPI, Change in Urinary Stream, Difficulty Urinating, Dysuria, Flank Pain, Hematuria, Pyuria, Nocturia, Urinary Incontinence, Urinary Frequency, Urinary Hesitance, Urinary Urgency, Voiding Freq/Small Amts, Freq UTI, Hx Renal/Bladder Calculi, Hx /Renal Surgery, Bladder Distension, Other - Musculoskeletal Musculoskeletal: As Per HPI - Integumentary Integumentary: As Per HPI, Skin Pain, Wounds - Neurological Neurological: absent: As Per HPI, Abnormal Gait, Abnormal Hearing, Abnormal Movements, Abnormal Speech, Behavioral Changes, Burning Sensations, Confusion, Convulsions, Disequilibrium, Dizziness, Numbness, Focal Weakness, Frequent Falls , Headaches, Lack of Coordination, Loss of Vision, Memory Loss, Paresthesias, Radicular Pain, Restless Legs, Sensory Deficit, Syncope, Tingling, Tremor, Vertigo, Weakness, Other Visual Disturbances, Other - Psychiatric Psychiatric: absent: As Per HPI, Abnormal Sleep Pattern, Anhedonia, Anxiety, Auditory Hallucinations, Behavioral Changes, Change in Appetite, Change in Libido, Confusion, Depression, Difficulty Concentrating, Hallucinations, Homicidal Ideation, Hopelessness, Irritability, Memory Loss, Mood Swings, Panic Attacks, Paranoia, Suicidal Ideation, Visual Hallucinations, Tactile Hallucinations, Other - Endocrine Endocrine: absent: As Per HPI, Change in Body Appearance, Change in Libido, Cold Intolorance, Deepening of Voice, Excessive Sweating, Fatigue, Flushing, Heat Intolorance, Increase in Ring/Shoe/Hat Size, Palpitations, Polydipsia, Polyphagia, Polyuria, Other - Hematologic/Lymphatic Hematologic: absent: As Per HPI, Easy Bleeding, Easy Bruising, Lymphadenopathy, Other Past Patient History - Infectious Disease Hx of Infectious Diseases: None - Past Medical History & Family History Past Medical History?: Yes - Past Social History Smoking Status: Light Smoker < 10 Cigarettes Daily - CARDIAC Hx Cardiac Disorders: Yes Hx Hypercholesterolemia: Yes Hx Hypertension: Yes - PULMONARY Hx Respiratory Disorders: No Hx Tuberculosis: No - NEUROLOGICAL Hx Neurological Disorder: No Hx Seizures: No - HEENT Hx HEENT Problems: No - RENAL Hx Chronic Kidney Disease: No - ENDOCRINE/METABOLIC Hx Endocrine Disorders: Yes (DMII) Hx Diabetes Mellitus Type 2: Yes - HEMATOLOGICAL/ONCOLOGICAL Hx Blood Disorders: No Hx Human Immunodeficiency Virus (HIV): No - INTEGUMENTARY Hx Dermatological Problems: No - MUSCULOSKELETAL/RHEUMATOLOGICAL Hx Musculoskeletal Disorders: Yes Hx Falls: Yes - GASTROINTESTINAL Hx Gastrointestinal Disorders: No - GENITOURINARY/GYNECOLOGICAL Hx Genitourinary Disorders: No Hx Sexually Transmitted Disorders: No - PSYCHIATRIC Hx Psychophysiologic Disorder: Yes Hx Anxiety: Yes Hx Substance Use: Yes (Heroine) - SURGICAL HISTORY Hx Surgeries: Yes Hx Vascular Surgery: Yes Hx Vascular Access Device: Yes - ANESTHESIA Hx Anesthesia: Yes Hx Anesthesia Reactions: No Hx Malignant Hyperthermia: No Meds Allergies/Adverse Reactions: Allergies Allergy/AdvReac Type Severity Reaction Status Date / Time ibuprofen [From Motrin] Allergy Intermediate Verified 01/06/18 20:17 tomato Allergy Intermediate Verified 01/06/18 20:17 - Medications Medications: Current Medications Enoxaparin Sodium (Lovenox) 40 mg SC DAILY [facility] Last Admin: 01/07/18 12:27 Dose: 40 mg Piperacillin Sod/Tazobactam Sod (Zosyn 3.375 Gm Iv Premix) 3.375 gm in 50 mls @ 100 mls/hr IVPB Q8 HEIDI PRN Reason: Protocol Last Admin: 01/07/18 15:24 Dose: 100 mls/hr Vancomycin/Sodium Chloride (Vancomycin 1 Gm/Ns 200 Ml) 1 gm in 200 mls @ 167 mls/hr IVPB Q24H HEIDI PRN Reason: Protocol Stop: 01/12/18 00:31 Last Admin: 01/07/18 01:30 Dose: 167 mls/hr Insulin Aspart (Novolog) 0 unit SC ACHS HEIDI PRN Reason: Protocol Last Admin: 01/07/18 12:25 Dose: 1 unit Pantoprazole Sodium (Protonix Ec Tab) 40 mg PO DAILY HEIDI Last Admin: 01/07/18 11:46 Dose: 40 mg Physical Exam - Constitutional Appears: Non-toxic, Chronically Ill - Head Exam Head Exam: NORMOCEPHALIC - Eye Exam Eye Exam: PERRL. absent: Scleral icterus - ENT Exam ENT Exam: Mucous Membranes Dry, Normal External Ear Exam - Neck Exam Neck exam: Negative for: Lymphadenopathy - Respiratory Exam Respiratory Exam: Decreased Breath Sounds - Cardiovascular Exam Cardiovascular Exam: REGULAR RHYTHM - GI/Abdominal Exam GI & Abdominal Exam: Diminished Bowel Sounds, Soft. absent: Tenderness - Rectal Exam Rectal Exam: Deferred - Exam Exam: NORMAL INSPECTION - Extremities Exam Extremities exam: Positive for: pedal edema, tenderness. Negative for: calf tenderness, pedal pulses present - Back Exam Back exam: absent: CVA tenderness (L), CVA tenderness (R), paraspinal tenderness - Neurological Exam Neurological exam: Alert, CN II-XII Intact, Oriented x3, Reflexes Normal - Psychiatric Exam Psychiatric exam: Depressed - Skin Skin Exam: Dry Results - Vital Signs Recent Vital Signs: Last Vital Signs Temp 98.2 F 01/07/18 16:00 Pulse 87 01/07/18 16:00 Resp 20 01/07/18 16:00 BP 135/90 01/07/18 16:00 Pulse Ox 98 01/07/18 16:00 - Labs Result Diagrams: 01/06/18 21:07 01/06/18 21:06 Labs: Laboratory Results - last 24 hr 01/06/18 01/06/18 01/06/18 21:06 21:07 21:15 WBC 6.0 RBC 4.12 L Hgb 13.2 Hct 39.1 MCV 94.8 H MCH 32.1 H MCHC 33.9 RDW 15.2 H Plt Count 218 MPV 6.6 L Neut % (Auto) 61.0 Lymph % (Auto) 18.1 L Lamb % (Auto) 11.7 H Eos % (Auto) 8.1 H Baso % (Auto) 1.1 Neut # (Auto) 3.7 Lymph # (Auto) 1.1 Lamb # (Auto) 0.7 Eos # (Auto) 0.5 Baso # (Auto) 0.1 pO2 23 L VBG pH 7.30 L VBG pCO2 57 VBG HCO3 23.5 VBG Total CO2 29.7 H VBG O2 Sat (Calc) 46.3 VBG Base Excess 0.4 VBG Potassium 3.8 Glucose 125 H Lactate 1.3 Sodium 143 139.0 Potassium 4.1 Chloride 103 106.0 Carbon Dioxide 28 Anion Gap 16 BUN 10 Creatinine 1.0 Est GFR ( Amer) > 60 Est GFR (Non-Af Amer) > 60 POC Glucose (mg/dL) Random Glucose 129 H Calcium 8.8 Total Bilirubin 0.8 AST 30 ALT 33 Alkaline Phosphatase 79 Total Protein 7.7 Albumin 4.3 Globulin 3.4 Albumin/Globulin Ratio 1.3 Venous Blood Potassium 3.8 Alcohol, Quantitative < 10 01/07/18 01/07/18 01/07/18 07:10 11:03 16:23 WBC RBC Hgb Hct MCV MCH MCHC RDW Plt Count MPV Neut % (Auto) Lymph % (Auto) Lamb % (Auto) Eos % (Auto) Baso % (Auto) Neut # (Auto) Lymph # (Auto) Lamb # (Auto) Eos # (Auto) Baso # (Auto) pO2 VBG pH VBG pCO2 VBG HCO3 VBG Total CO2 VBG O2 Sat (Calc) VBG Base Excess VBG Potassium Glucose Lactate Sodium Potassium Chloride Carbon Dioxide Anion Gap BUN Creatinine Est GFR ( Amer) Est GFR (Non-Af Amer) POC Glucose (mg/dL) 119 H 157 H 100 Random Glucose Calcium Total Bilirubin AST ALT Alkaline Phosphatase Total Protein Albumin Globulin Albumin/Globulin Ratio Venous Blood Potassium Alcohol, Quantitative Assessment & Plan (1) Bilateral cellulitis of lower leg Status: Acute (2) Diabetes Status: Chronic (3) Heroin abuse Status: Chronic - Assessment and Plan (Free Text) Assessment: cont iv antibiotics await cultures arterial and venous dopplers vanco levels ordered consider podiatry eval
[2018-01-08] MEDS: Vancomycin 1 gm/NS 200 ml 1 GM/200 ML BAG IVPB SCH (01:12)
[2018-01-08] MEDS: Piperacill/Tazo 3.375gm in Dex 3.375 GM/50 ML BAG IVPB SCH ×3 (05:37→21:40)
[2018-01-08] MEDS: (Novolog) Insulin Aspart, Recombinant 100 u/ml 10 ml vial SC SCH ×4 (07:30→21:38)
--- NOTE | 2018-01-08 07:38 | CP.PCM.PN ---
Subjective - Date & Time of Evaluation Date of Evaluation: 01/08/18 Time of Evaluation: 07:37 - Subjective Subjective: PGY2 note for Dr Napier's service Pt seen and examined at bedside. Nursing reports no acute events overnight. Patient denies fevers, chills overnight but he admits still feeling 3/10 pain in his left leg. Pain worse with walking. Patient reports taking Seroquel at home for bipolar disorder. He denies homicidal/suicidal ideation. Patient for arterial/venous dopplers this AM. Objective - Vital Signs/Intake and Output Vital Signs (last 24 hours): Temp Pulse Resp BP Pulse Ox 98.3 F 83 20 127/79 100 01/08/18 00:00 01/08/18 00:00 01/08/18 00:00 01/08/18 00:00 01/08/18 00:00 Intake and Output: 01/08/18 01/08/18 06:59 18:59 Intake Total 1150 Balance 1150 - Medications Medications: Current Medications Enoxaparin Sodium (Lovenox) 40 mg SC DAILY [facility] Last Admin: 01/07/18 12:27 Dose: 40 mg Piperacillin Sod/Tazobactam Sod (Zosyn 3.375 Gm Iv Premix) 3.375 gm in 50 mls @ 100 mls/hr IVPB Q8 HEIDI PRN Reason: Protocol Last Admin: 01/08/18 05:37 Dose: 100 mls/hr Vancomycin/Sodium Chloride (Vancomycin 1 Gm/Ns 200 Ml) 1 gm in 200 mls @ 167 mls/hr IVPB Q24H HEIDI PRN Reason: Protocol Stop: 01/12/18 00:31 Last Admin: 01/08/18 01:12 Dose: 167 mls/hr Insulin Aspart (Novolog) 0 unit SC ACHS HEIDI PRN Reason: Protocol Last Admin: 01/07/18 21:24 Dose: Not Given Pantoprazole Sodium (Protonix Ec Tab) 40 mg PO DAILY [facility] Last Admin: 01/07/18 11:46 Dose: 40 mg - Labs Labs: 01/06/18 21:07 01/06/18 21:06 - Constitutional Appears: Non-toxic, No Acute Distress - Head Exam Head Exam: ATRAUMATIC, NORMAL INSPECTION, NORMOCEPHALIC - Eye Exam Eye Exam: EOMI, Normal appearance. absent: Scleral icterus - ENT Exam ENT Exam: Mucous Membranes Moist - Neck Exam Neck Exam: Full ROM - Respiratory Exam Respiratory Exam: Clear to Ausculation Bilateral, NORMAL BREATHING PATTERN. absent: Rales, Rhonchi, Wheezes - Cardiovascular Exam Cardiovascular Exam: REGULAR RHYTHM, +S1, +S2 - GI/Abdominal Exam GI & Abdominal Exam: Soft, Normal Bowel Sounds. absent: Tenderness - Extremities Exam Extremities Exam: Pedal Edema (L > R), Tenderness (diffuse). absent: Normal Inspection - Back Exam Back Exam: absent: CVA tenderness (L), CVA tenderness (R) - Neurological Exam Neurological Exam: Alert, Awake, Oriented x3 - Psychiatric Exam Psychiatric exam: Normal Affect, Normal Mood - Skin Skin Exam: Normal Color, Warm Assessment and Plan - Assessment and Plan (Free Text) Plan: Cellulitis, Bilateral legs Observe on med/surg Afebrile, No WBC since admission Lactate 1.3 Dr. Brunson, ID philatelic consultant - help appreciated Vancomycin 1 gm Q24H (started 01/07/18, Day 2) - f/u vanc trough Zosyn 3.375gm (started 01/07/18, Day 2) f/u procalcitonin f/u arterial/venous dopplers Opiate Abuse Disorder Pt last use of heroin on day of admission Pt denies withdrawal symptoms f/u UDS Bipolar Disorder Restart home Seroquel 300mg PO Daily Leukopenia HIV negative Diabetes Mellitus, Type 2 Accuchecks ACHS Hypoglycemia Protocol ISS f/u Hemoglobin A1C, Lipid panel Hepatitis C hepatitis panel: positive for hep C antibody AST/ALT WNL HTN Well controlled over admission course Monitor Hypercholesterolemia f/u lipid panel Prophylaxis Protonix 40mg PO Daily Lovenox 40mg SC daily SCDs C/I Disposition: Follow up arterial and venous dopplers. Monitor W/D symptoms of opioids. Aly Norris PGY-[address] Kristy Napier
[2018-01-08 07:40] LABS: BASO % 1.2 % (0.0-2.0); EOS # 0.5 K/uL (0.0-0.7); EOS % 11.3 % (0.0-4.0); HEMOGLOBIN 13.5 g/dL (12.0-18.0); LYMPH # 0.9 K/uL (1.0-4.3); LYMPH % 22.3 % (20.0-40.0); MEAN CELL VOLUME 93.4 fL (80.0-94.0); MEAN CORPUSCULAR HEMOGLOBIN 32.5 pg (27.0-31.0); MEAN CORPUSCULAR HGB CONC 34.8 g/dL (33.0-37.0); MONO # 0.5 K/uL (0.0-0.8); MONO % 11.4 % (0.0-10.0); NEUT # 2.2 K/uL (1.8-7.0); NEUT % 53.8 % (50.0-75.0); NRBC % 0.1 % (0.0-2.0); RBC 4.15 Mil/uL (4.40-5.90); RED CELL DISTRIBUTION WIDTH 14.7 % (11.5-14.5); WHITE BLOOD COUNT 4.1 K/uL (4.8-10.8)
[2018-01-08 07:42] LABS: ALB/GLOB RATIO 1.1 (1.0-2.1); ALBUMIN 3.7 g/dL (3.5-5.0); ALT/SGPT 31 U/L (21-72); AST/SGOT 27 U/L (17-59); BLOOD UREA NITROGEN 9 mg/dL (9-20); CALCIUM 8.8 mg/dl (8.6-10.4); GFR AFRICAN-AMERICAN > 60; GFR NON-AFRICAN AMERICAN > 60
[2018-01-08 08:16] LABS: HEPATITIS B SURFACE AG Negative (NEGATIVE)
[2018-01-08 08:22] LABS: HEPATITIS A IGM NEGATIVE (NEGATIVE); HEPATITIS B CORE AB NEGATIVE (NEGATIVE)
--- NOTE | 2018-01-08 08:27 | RAD ---
Date of service: 01/08/2018 HISTORY: r/o pneumonia COMPARISON: No prior. FINDINGS: LUNGS: The lungs are well inflated and clear. PLEURA: No significant pleural effusion identified, no pneumothorax apparent. CARDIOVASCULAR: Normal. OSSEOUS STRUCTURES: No significant abnormalities. VISUALIZED UPPER ABDOMEN: Normal. OTHER FINDINGS: None. IMPRESSION: No active pulmonary disease.
[2018-01-08 09:42] LABS: HEPATITIS C ANTIBODY REACTIVE (NEGATIVE)
[2018-01-08] MEDS: Enoxaparin 40 mg Syringe SC SCH (11:31)
[2018-01-08] MEDS: Pantoprazole 40 mg EC Tab PO SCH (11:32)
--- NOTE | 2018-01-08 13:28 | VASCLAB ---
Date of service: 01/08/2018 PROCEDURE: Lower Extremity Venous Duplex Exam. HISTORY: DVT PRIORS: None. TECHNIQUE: Bilateral common femoral, femoral, popliteal and posterior tibial, peroneal and great saphenous veins were evaluated. Flow was assessed with color Doppler, compressibility, assessment of phasic flow and augmentation response. Report prepared by GRISELDA Buitrago, RVT FINDINGS: RIGHT: 1. Common Femoral Vein: 1.1. Compressibility - Partial: Thrombus - Chronic : Flow - Phasic: Augmentation -Normal: Reflux - None. 2. Femoral Vein: 2.1. Compressibility - Incompressible: Thrombus - Chronic : Flow - Reduced : Augmentation -Normal: Reflux - None. 3. Popliteal Vein: 3.1. Compressibility - Incompressible: Thrombus - Chronic : Flow - Phasic: Augmentation -Normal: Reflux - Mild. 4. Posterior Tibial Vein: 4.1. Compressibility - Fully compressible: Thrombus - None: Flow - Phasic: Augmentation -Normal: Reflux - None. 5. Peroneal Vein: 5.1. Compressibility - Fully compressible: Thrombus - None: Flow - Phasic: Augmentation -Normal: Reflux - Mild. 6. Great Saphenous Vein: 6.1. Compressibility - Fully compressible: Thrombus - None: Flow - Phasic: Augmentation - Normal: Reflux - None. LEFT: 1. Common Femoral Vein: 1.1. Compressibility - Fully compressible: Thrombus - None: Flow - Phasic: Augmentation -Normal: Reflux - None. 2. Femoral Vein: 2.1. Compressibility - Incompressible: Thrombus - Chronic: Flow - Reduced : Augmentation -Normal: Reflux - None. 3. Popliteal Vein: 3.1. Compressibility - Incompressible: Thrombus - Chronic : Flow - Reduced : Augmentation -Normal: Reflux - Mild2.18S 4. Posterior Tibial Vein: 4.1. Compressibility - Fully compressible: Thrombus - None: Flow - Phasic: Augmentation -Normal: Reflux - None. 5. Peroneal Vein: 5.1. Compressibility - Incompressible: Thrombus - Chronic: Flow - Reduced : Augmentation -Normal: Reflux - None. 6. Great Saphenous Vein: 6.1. Compressibility - Fully compressible: Thrombus - None: Flow - Phasic: Augmentation - Normal: Reflux - None. OTHER FINDINGS: None. IMPRESSION: Right: Chronic deep vein thrombosis of the right common femoral, femoral and popliteal veins. Mild valvular incompetence noted of the right side. Left: Chronic deep vein thrombosis of the left femoral, popliteal and peroneal veins. Mild valvular incompetence noted of the left side.
[2018-01-08] MEDS ORDERED: Enoxaparin 40 mg Syringe SC ONE (14:00)
[2018-01-08 14:16] LABS: BASO % 0.8 % (0.0-2.0); EOS # 0.2 K/uL (0.0-0.7); EOS % 5.3 % (0.0-4.0); HEMOGLOBIN 13.3 g/dL (12.0-18.0); LYMPH # 0.7 K/uL (1.0-4.3); LYMPH % 17.5 % (20.0-40.0); MEAN CELL VOLUME 93.3 fL (80.0-94.0); MEAN CORPUSCULAR HEMOGLOBIN 32.6 pg (27.0-31.0); MEAN CORPUSCULAR HGB CONC 34.9 g/dL (33.0-37.0); MEAN PLATELET VOLUME 6.8 fL (7.2-11.7); MONO # 0.4 K/uL (0.0-0.8); MONO % 10.2 % (0.0-10.0); NEUT # 2.8 K/uL (1.8-7.0); NEUT % 66.2 % (50.0-75.0); NRBC % 0.1 % (0.0-2.0); RBC 4.09 Mil/uL (4.40-5.90); RED CELL DISTRIBUTION WIDTH 14.5 % (11.5-14.5); WHITE BLOOD COUNT 4.2 K/uL (4.8-10.8)
--- NOTE | 2018-01-08 16:32 | CP.PCM.PN ---
Subjective - Date & Time of Evaluation Date of Evaluation: 01/08/18 Time of Evaluation: 09:00 - Subjective Subjective: events noted + DVT vascular on board cont iv antibiotics Objective - Vital Signs/Intake and Output Vital Signs (last 24 hours): Temp Pulse Resp BP Pulse Ox 98.1 F 84 20 134/85 98 01/08/18 08:08 01/08/18 08:08 01/08/18 08:08 01/08/18 08:08 01/08/18 08:08 Intake and Output: 01/08/18 01/08/18 06:59 18:59 Intake Total 1150 450 Balance 1150 450 - Medications Medications: Current Medications Enoxaparin Sodium (Lovenox) 80 mg SC Q12 HEIDI Piperacillin Sod/Tazobactam Sod (Zosyn 3.375 Gm Iv Premix) 3.375 gm in 50 mls @ 100 mls/hr IVPB Q8 HEIDI PRN Reason: Protocol Last Admin: 01/08/18 14:03 Dose: 100 mls/hr Vancomycin/Sodium Chloride (Vancomycin 1 Gm/Ns 200 Ml) 1 gm in 200 mls @ 167 mls/hr IVPB Q24H HEIDI PRN Reason: Protocol Stop: 01/12/18 00:31 Last Admin: 01/08/18 01:12 Dose: 167 mls/hr Insulin Aspart (Novolog) 0 unit SC ACHS HEIDI PRN Reason: Protocol Last Admin: 01/08/18 11:32 Dose: Not Given Pantoprazole Sodium (Protonix Ec Tab) 40 mg PO DAILY [facility] Last Admin: 01/08/18 11:32 Dose: 40 mg Quetiapine Fumarate (Seroquel) 300 mg PO HS HEIDI - Labs Labs: 01/08/18 14:01 01/08/18 07:18 - Constitutional Appears: Non-toxic, Chronically Ill - Head Exam Head Exam: NORMOCEPHALIC - Eye Exam Eye Exam: PERRL - ENT Exam ENT Exam: Mucous Membranes Dry - Neck Exam Neck Exam: absent: Lymphadenopathy - Respiratory Exam Respiratory Exam: Decreased Breath Sounds - Cardiovascular Exam Cardiovascular Exam: REGULAR RHYTHM - GI/Abdominal Exam GI & Abdominal Exam: Distended - Rectal Exam Rectal Exam: Deferred - Exam Exam: NORMAL INSPECTION Assessment and Plan (1) Bilateral cellulitis of lower leg Status: Acute (2) Diabetes Status: Chronic (3) Heroin abuse Status: Chronic
[2018-01-08 16:36] VITALS: TEMP 98.3
--- NOTE | 2018-01-08 20:31 | CP.PCM.PN ---
Subjective - Date & Time of Evaluation Date of Evaluation: 01/08/18 Time of Evaluation: 08:40 Objective - Vital Signs/Intake and Output Vital Signs (last 24 hours): Temp Pulse Resp BP Pulse Ox 98.3 F 83 20 151/95 H 100 01/08/18 15:00 01/08/18 15:00 01/08/18 15:00 01/08/18 15:00 01/08/18 15:00 Intake and Output: 01/08/18 01/09/18 18:59 06:59 Intake Total 450 Balance 450 - Medications Medications: Current Medications Enoxaparin Sodium (Lovenox) 80 mg SC Q12 HEIDI Piperacillin Sod/Tazobactam Sod (Zosyn 3.375 Gm Iv Premix) 3.375 gm in 50 mls @ 100 mls/hr IVPB Q8 HEIDI PRN Reason: Protocol Last Admin: 01/08/18 14:03 Dose: 100 mls/hr Vancomycin/Sodium Chloride (Vancomycin 1 Gm/Ns 200 Ml) 1 gm in 200 mls @ 167 mls/hr IVPB Q24H HEIDI PRN Reason: Protocol Stop: 01/12/18 00:31 Last Admin: 01/08/18 01:12 Dose: 167 mls/hr Insulin Aspart (Novolog) 0 unit SC ACHS HEIDI PRN Reason: Protocol Last Admin: 01/08/18 16:30 Dose: Not Given Pantoprazole Sodium (Protonix Ec Tab) 40 mg PO DAILY HEIDI Last Admin: 01/08/18 11:32 Dose: 40 mg Quetiapine Fumarate (Seroquel) 300 mg PO HS HEIDI - Labs Labs: 01/08/18 14:01 01/08/18 07:18
[2018-01-08] MEDS ORDERED: Enoxaparin 80 mg Syringe SC SCH (22:00)
[2018-01-09 01:33] VITALS: BP 153/93; PULSE 90; O2SAT 95
[2018-01-09] MEDS: Vancomycin 1 gm/NS 200 ml 1 GM/200 ML BAG IVPB SCH ×3 (02:00→05:52)
[2018-01-09] MEDS: Piperacill/Tazo 3.375gm in Dex 3.375 GM/50 ML BAG IVPB SCH (06:01)
[2018-01-09] MEDS: (Novolog) Insulin Aspart, Recombinant 100 u/ml 10 ml vial SC SCH (08:01)
[2018-01-09 08:24] LABS: HDL CHOLESTEROL 38 mg/dL (30-70)
[2018-01-09 08:49] LABS: LDL CHOLESTEROL 109 mg/dL (0-129)
[2018-01-09 22:36] LABS: STREP PNEUMONIAE NEGATIVE (NEGATIVE)
[2018-01-09 22:37] LABS: N MENINGITIS ACY/W135 NEGATIVE (NEGATIVE); N MENINGITIS B/ECOLI K1 NEGATIVE (NEGATIVE); STREPTOCOCCUS B NEGATIVE (NEGATIVE)
== END 2018-01-09 10:26 | disposition left against medical advice (07) | DRG 603 ==
LOC: C.ER 20:08 → C.9E 22:59 → C.3T 01-07 00:53
PROVIDERS: ADMIT Internal Medicine Nephrology; ATTEND Internal Medicine Nephrology
DX: L03.115 Cellulitis of right lower limb (principal); I82.513 Chronic embolism and thrombosis of femoral vein, bilateral; I82.533 Chronic embolism and thrombosis of popliteal vein, bilateral; I82.5Z3 Chronic embolism and thrombosis of unspecified deep veins of distal lower extremity, bilateral; L03.116 Cellulitis of left lower limb; F17.210 Nicotine dependence, cigarettes, uncomplicated; E11.9 Type 2 diabetes mellitus without complications; E78.00 Pure hypercholesterolemia, unspecified; F11.10 Opioid abuse, uncomplicated; F20.9 Schizophrenia, unspecified; F31.9 Bipolar disorder, unspecified; I10 Essential (primary) hypertension

== ENCOUNTER 2018-01-10 22:28 | Inpatient (IN) | payer MEDICARE, OTHER ==
[2018-01-10 22:28] VITALS: BMI 33.9
[2018-01-10 22:49] VITALS: RESP 20
--- NOTE | 2018-01-10 23:00 | C.PDOC ---
History Of Present Illness 52 year old homeless man with prior history of heroin abuse presents to the ED c /o chronic leg swelling. 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 Patient was treated with IV antibiotics and lovenox. Patient states he was discharged 2 days ago and has not improved, patient reports "no meds given and does not know what to do". Patient denies injury, fall, trauma, CP, SOB, weakness, numbness. Review of hospital records show that patient eloped from the hospital. Time Seen by Provider: 01/10/18 22:43 Chief Complaint (Nursing): Lower Extremity Problem/Injury History Per: Patient History/Exam Limitations: no limitations Onset/Duration Of Symptoms: Days Current Symptoms Are (Timing): Still Present Recent travel outside of the [place]: No Additional History Per: Patient - Knee Description Of Injury: Other - Ankle/Foot Description Of Injury: Other Past Medical History Reviewed: Historical Data, Nursing Documentation, Vital Signs Vital Signs: Last Vital Signs Temp 98.8 F 01/10/18 22:46 Pulse 110 H 01/10/18 22:46 Resp 20 01/10/18 22:46 BP 156/90 H 01/10/18 22:46 Pulse Ox 95 01/10/18 23:03 - Medical History PMH: Anxiety, Bipolar Disorder, Depression, Diabetes, Deep Vein Thrombosis, Hepatitis (C), HTN, Hypercholesterolemia, Schizophrenia Denies: HIV, Chronic Kidney Disease, Seizures, Sexually Transmitted Disease Surgical History: No Surg Hx - [facility] Procedures CONTRAST PHLEBOGRAM-LEG (07/08/13) DETOXIFICATION SERVICES FOR SUBSTANCE ABUSE TREATMENT (12/03/17) HEMODIALYSIS (10/28/13) INJECT/INFUSE THROMBOLYTIC AGENT (10/24/13) PLICATION OF VENA CAVA (06/13/13) Family History: States: Unknown Family Hx - Social History Hx Tobacco Use: Yes Hx Alcohol Use: Yes Hx Substance Use: Yes (HEROIN) - Immunization History Hx Tetanus Toxoid Vaccination: No Hx Influenza Vaccination: No Hx Pneumococcal Vaccination: No Review Of Systems Constitutional: Negative for: Fever, Chills Cardiovascular: Negative for: Chest Pain, Palpitations Respiratory: Negative for: Cough, Shortness of Breath Gastrointestinal: Negative for: Nausea, Vomiting Musculoskeletal: Positive for: Leg Pain, Other (leg swelling) Skin: Positive for: Other (erythema) Neurological: Negative for: Weakness, Numbness Physical Exam - Physical Exam Appears: Non-toxic, No Acute Distress Skin: Normal Color, Warm, Dry Head: Atraumatic, Normacephalic Eye(s): bilateral: Normal Inspection Oral Mucosa: Moist Neck: Normal ROM, Supple Chest: Symmetrical Cardiovascular: Rhythm Regular Respiratory: Normal Breath Sounds, No Rales, No Rhonchi, No Wheezing Gastrointestinal/Abdominal: Soft, No Tenderness, No Guarding, No Rebound Extremity: Normal ROM, Tenderness (b/l legs), Calf Tenderness (b/l), Capillary Refill (< 2 seconds), Swelling (chronic b/l legs with erythema) Pulses: Left Dorsalis Pedis: Normal, Right Dorsalis Pedis: Normal Neurological/Psych: Oriented x3, Normal Speech, Normal Motor, Normal Sensation Gait: Steady ED Course And Treatment O2 Sat by Pulse Oximetry: 95 (ON RA) Pulse Ox Interpretation: Normal - Physician Consult Information Physician Contacted: Keo Krishnamurthy Outcome Of Conversation: Patient to be readmitted for IV antibiotics and anticoagulation Medical Decision Making Medical Decision Making: Impression: chronic swelling to bilateral legs Plan: * Labs 22:50- paged Dr. Brunson Disposition - Disposition Disposition: HOSPITALIZED Disposition Time: 23:38 Condition: STABLE - POA Present On Arrival: None - Clinical Impression Clinical Impression: Deep venous thrombosis of lower extremity, Heroin abuse, Bilateral cellulitis of lower leg - Scribe Statement The provider has reviewed the documentation as recorded by the Scrib[place] Griffiths All medical record entries made by the [place] were at my direction and personally dictated by me. I have reviewed the chart and agree that the record accurately reflects my personal performance of the history, physical exam, medical decision making, and the department course for this patient. I have also personally directed, reviewed, and agree with the discharge instructions and disposition.
[2018-01-11] MEDS: Vancomycin 1 GM in Sodium Chloride 0.9% 200 ML IVPB SCH (00:22)
[2018-01-11 00:56] LABS: BASO # 0.1 K/uL (0.0-0.2); BASO % 1.5 % (0.0-2.0); EOS # 0.3 K/uL (0.0-0.7); EOS % 4.5 % (0.0-4.0); HEMOGLOBIN 13.4 g/dL (12.0-18.0); LYMPH # 1.4 K/uL (1.0-4.3); LYMPH % 21.5 % (20.0-40.0); MEAN CELL VOLUME 94.3 fL (80.0-94.0); MEAN CORPUSCULAR HEMOGLOBIN 31.6 pg (27.0-31.0); MEAN CORPUSCULAR HGB CONC 33.6 g/dL (33.0-37.0); MEAN PLATELET VOLUME 6.7 fL (7.2-11.7); MONO # 0.8 K/uL (0.0-0.8); MONO % 12.2 % (0.0-10.0); NEUT # 3.9 K/uL (1.8-7.0); NEUT % 60.3 % (50.0-75.0); NRBC % 0.1 % (0.0-2.0); RBC 4.25 Mil/uL (4.40-5.90); RED CELL DISTRIBUTION WIDTH 14.6 % (11.5-14.5); WHITE BLOOD COUNT 6.5 K/uL (4.8-10.8)
[2018-01-11 01:16] LABS: ALB/GLOB RATIO 1.1 (1.0-2.1); ALBUMIN 4.5 g/dL (3.5-5.0); ALT/SGPT 33 U/L (21-72); AST/SGOT 35 U/L (17-59); BLOOD UREA NITROGEN 9 mg/dL (9-20); CALCIUM 8.9 mg/dl (8.6-10.4); GFR AFRICAN-AMERICAN > 60; GFR NON-AFRICAN AMERICAN > 60
[2018-01-11] MEDS: Piperacillin/Tazobact 3.375 GM in Sodium Chloride 100 ML IVPB SCH ×3 (02:24→18:30)
[2018-01-11] MEDS: (Novolog) Insulin Aspart, Recombinant 100 u/ml 10 ml vial SC SCH ×4 (08:45→22:22)
[2018-01-11] MEDS ORDERED: Enoxaparin 40 mg Syringe SC SCH (10:00)
[2018-01-11] MEDS: Enoxaparin 100 mg Syringe SC SCH (10:52)
--- NOTE | 2018-01-11 12:09 | CP.PCM.CON ---
History of Present Illness - History of Present Illness History of Present Illness: 52 year old homeless man with prior history of heroin abuse presents to the ED c /o chronic leg swelling. 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 Patient was treated with IV antibiotics and lovenox. Patient states he was discharged 2 days ago and has not improved, patient reports "no meds given and does not know what to do". Patient denies injury, fall, trauma, CP, SOB, weakness, numbness. Review of hospital records show that patient eloped from the hospital. 52 year old male patient with a PMHx of diabetes and heroin abuse presents to the ER with complaints of painful, swollen legs. Patient reports that he can not walk properly and did not check his glucose and is not sure if it is high. His last heroin use was this morning. Patient denies fever, chills, dizziness, or abdominal pain. ID consulted for antibiotic management - Medical History PMH: Anxiety, Bipolar Disorder, Depression, Diabetes, Deep Vein Thrombosis, Hepatitis (C), HTN, Hypercholesterolemia, Schizophrenia - [facility] Procedures CONTRAST PHLEBOGRAM-LEG (07/08/13) DETOXIFICATION SERVICES FOR SUBSTANCE ABUSE TREATMENT (12/03/17) HEMODIALYSIS (10/28/13) INJECT/INFUSE THROMBOLYTIC AGENT (10/24/13) PLICATION OF VENA CAVA (06/13/13) Review of Systems - Constitutional Constitutional: As Per HPI - EENT Eyes: absent: As Per HPI, Blind Spots, Blurred Vision, Change in Vision, Decreased Night Vision, Diplopia, Discharge, Dry Eye, Exophthalmos, Floaters, Irritation, Itchy Eyes, Loss of Peripheral Vision, Pain, Photophobia, Requires Corrective Lenses, Sees Flashes, Spots in Vision, Tunnel Vision, Other Visual Disturbances, Loss of Vision, Other Ears: absent: As Per HPI, Decreased Hearing, Ear Discharge, Ear Pain, Tinnitus, Abnormal Hearing, Disequilibrium, Dizziness, Other Nose/Mouth/Throat: absent: As Per HPI, Epistaxis, Nasal Congestion, Nasal Discharge, Nasal Obstruction, Nasal Trauma, Nose Pain, Post Nasal Drip, Sinus Pain, Sinus Pressure, Bleeding Gums, Change in Voice, Dental Pain, Dry Mouth, Dysphagia, Halitosis, Hoarsness, Lip Swelling, Mouth Lesions, Mouth Pain, Odynophagia, Sore Throat, Throat Swelling, Tongue Swelling, Facial Pain, Neck Pain, Neck Mass, Other - Cardiovascular Cardiovascular: absent: As Per HPI, Acrocyanosis, Chest Pain, Chest Pain at Rest , Chest Pain with Activity, Claudication, Diaphoresis, Dyspnea, Dyspnea on Exertion, Edema, Irregular Heart Rhythm, Pain Radiating to Arm/Neck/Jaw, Leg Edema, Leg Ulcers, Lightheadedness, Orthopnea, Palpitations, Paroxysmal Nocturnal Dyspnea, Pedal Edema, Radiating Pain, Rapid Heart Rate, Slow Heart Rate, Syncope, Other - Respiratory Respiratory: absent: As Per HPI, Cough, Dyspnea, Hemoptysis, Dyspnea on Exertion , Wheezing, Snoring, Stridor, Pain on Inspiration, Chest Congestion, Excessive Mucous Production, Change in Mucous Color, Pain with Coughing, Other - Gastrointestinal Gastrointestinal: absent: As Per HPI, Abdominal Pain, Belching, Bloating, Change in Bowel Habits, Change in Stool Character, Coffee Ground Emesis, Constipation, Cramping, Diarrhea, Dyspepsia, Dysphagia, Early Satiety, Excessive Flatus, Fecal Incontinence, Heartburn, Hematemesis, Hematochezia, Loose Stools, Melena, Nausea, Odynophagia, Temesmus, Vomiting, Other - Genitourinary Genitourinary: absent: As Per HPI, Change in Urinary Stream, Difficulty Urinating, Dysuria, Flank Pain, Hematuria, Pyuria, Nocturia, Urinary Incontinence, Urinary Frequency, Urinary Hesitance, Urinary Urgency, Voiding Freq/Small Amts, Freq UTI, Hx Renal/Bladder Calculi, Hx /Renal Surgery, Bladder Distension, Other - Musculoskeletal Musculoskeletal: As Per HPI - Integumentary Integumentary: As Per HPI, Skin Pain, Wounds - Neurological Neurological: absent: As Per HPI, Abnormal Gait, Abnormal Hearing, Abnormal Movements, Abnormal Speech, Behavioral Changes, Burning Sensations, Confusion, Convulsions, Disequilibrium, Dizziness, Numbness, Focal Weakness, Frequent Falls , Headaches, Lack of Coordination, Loss of Vision, Memory Loss, Paresthesias, Radicular Pain, Restless Legs, Sensory Deficit, Syncope, Tingling, Tremor, Vertigo, Weakness, Other Visual Disturbances, Other - Psychiatric Psychiatric: absent: As Per HPI, Abnormal Sleep Pattern, Anhedonia, Anxiety, Auditory Hallucinations, Behavioral Changes, Change in Appetite, Change in Libido, Confusion, Depression, Difficulty Concentrating, Hallucinations, Homicidal Ideation, Hopelessness, Irritability, Memory Loss, Mood Swings, Panic Attacks, Paranoia, Suicidal Ideation, Visual Hallucinations, Tactile Hallucinations, Other - Endocrine Endocrine: absent: As Per HPI, Change in Body Appearance, Change in Libido, Cold Intolorance, Deepening of Voice, Excessive Sweating, Fatigue, Flushing, Heat Intolorance, Increase in Ring/Shoe/Hat Size, Palpitations, Polydipsia, Polyphagia, Polyuria, Other - Hematologic/Lymphatic Hematologic: absent: As Per HPI, Easy Bleeding, Easy Bruising, Lymphadenopathy, Other Past Patient History - Infectious Disease Hx of Infectious Diseases: None - Past Medical History & Family History Past Medical History?: Yes - Past Social History Smoking Status: Light Smoker < 10 Cigarettes Daily - CARDIAC Hx Cardiac Disorders: Yes Hx Hypercholesterolemia: Yes Hx Hypertension: Yes - PULMONARY Hx Respiratory Disorders: No Hx Tuberculosis: No - NEUROLOGICAL Hx Neurological Disorder: No Hx Seizures: No - HEENT Hx HEENT Problems: No - RENAL Hx Chronic Kidney Disease: No - ENDOCRINE/METABOLIC Hx Endocrine Disorders: Yes (DMII) Hx Diabetes Mellitus Type 2: Yes - HEMATOLOGICAL/ONCOLOGICAL Hx Blood Disorders: No Hx Human Immunodeficiency Virus (HIV): No - INTEGUMENTARY Hx Dermatological Problems: No - MUSCULOSKELETAL/RHEUMATOLOGICAL Hx Musculoskeletal Disorders: No Hx Falls: No - GASTROINTESTINAL Hx Gastrointestinal Disorders: No - GENITOURINARY/GYNECOLOGICAL Hx Genitourinary Disorders: No Hx Sexually Transmitted Disorders: No - PSYCHIATRIC Hx Psychophysiologic Disorder: Yes Hx Anxiety: Yes Hx Bipolar Disorder: Yes Hx Depression: Yes Hx Schizophrenia: Yes Hx Substance Use: Yes (Heroin) - SURGICAL HISTORY Hx Surgeries: Yes Hx Vascular Surgery: Yes Hx Vascular Access Device: Yes Other/Comment: Vena Cava Filter - ANESTHESIA Hx Anesthesia: Yes Hx Anesthesia Reactions: No Hx Malignant Hyperthermia: No Meds Allergies/Adverse Reactions: Allergies Allergy/AdvReac Type Severity Reaction Status Date / Time ibuprofen [From Motrin] Allergy Intermediate Verified 01/06/18 20:17 tomato Allergy Intermediate Verified 01/06/18 20:17 - Medications Medications: Current Medications Enoxaparin Sodium (Lovenox) 90 mg SC DAILY HEIDI Last Admin: 01/11/18 10:52 Dose: 90 mg Piperacillin Sod/Tazobactam (Sod 3.375 gm/ Sodium Chloride) 100 mls @ 200 mls/ hr IVPB Q8H HEIDI PRN Reason: Protocol Last Admin: 01/11/18 10:51 Dose: 200 mls/hr Vancomycin HCl 1 gm/ Sodium (Chloride) 200 mls @ 133.333 mls/hr IVPB Q24H HEIDI PRN Reason: Protocol Last Admin: 01/11/18 00:22 Dose: Not Given Insulin Aspart (Novolog) 1 unit SC ACHS HEIDI PRN Reason: Protocol Last Admin: 01/11/18 11:56 Dose: Not Given Pneumococcal Polyvalent Vaccine (Pneumovax 23 Vaccine) 0.5 ml IM .ONCE ONE Stop: 01/13/18 14:01 Physical Exam - Constitutional Appears: No Acute Distress, Chronically Ill - Head Exam Head Exam: ATRAUMATIC, NORMOCEPHALIC - Eye Exam Eye Exam: absent: Scleral icterus - ENT Exam ENT Exam: Mucous Membranes Dry, Normal External Ear Exam - Neck Exam Neck exam: Negative for: Lymphadenopathy - Respiratory Exam Respiratory Exam: Decreased Breath Sounds - Cardiovascular Exam Cardiovascular Exam: REGULAR RHYTHM - GI/Abdominal Exam GI & Abdominal Exam: Diminished Bowel Sounds - Rectal Exam Rectal Exam: Deferred - Exam Exam: NORMAL INSPECTION - Extremities Exam Extremities exam: Positive for: pedal edema, tenderness. Negative for: calf tenderness, pedal pulses present - Back Exam Back exam: absent: CVA tenderness (L), CVA tenderness (R) - Neurological Exam Neurological exam: Alert, CN II-XII Intact, Oriented x3, Reflexes Normal - Psychiatric Exam Psychiatric exam: Normal Mood - Skin Skin Exam: Dry Results - Vital Signs Recent Vital Signs: Last Vital Signs Temp 98.1 F 01/11/18 07:25 Pulse 87 01/11/18 07:25 Resp 20 01/11/18 07:25 BP 103/67 01/11/18 07:25 Pulse Ox 98 01/11/18 07:25 - Labs Result Diagrams: 01/11/18 00:45 01/11/18 00:45 Labs: Laboratory Results - last 24 hr 01/11/18 01/11/18 00:45 00:45 WBC 6.5 D RBC 4.25 L Hgb 13.4 Hct 40.1 MCV 94.3 H MCH 31.6 H MCHC 33.6 RDW 14.6 H Plt Count 292 MPV 6.7 L Neut % (Auto) 60.3 Lymph % (Auto) 21.5 [place] % (Auto) 12.2 H Eos % (Auto) 4.5 H Baso % (Auto) 1.5 Neut # (Auto) 3.9 Lymph # (Auto) 1.4 [place] # (Auto) 0.8 Eos # (Auto) 0.3 Baso # (Auto) 0.1 Sodium 138 Potassium 3.8 Chloride 99 Carbon Dioxide 25 Anion Gap 17 BUN 9 Creatinine 1.0 Est GFR ( Amer) > 60 Est GFR (Non-Af Amer) > 60 Random Glucose 118 H Calcium 8.9 Total Bilirubin 0.6 AST 35 ALT 33 Alkaline Phosphatase 76 Total Protein 8.5 H Albumin 4.5 Globulin 4.0 H Albumin/Globulin Ratio 1.1 Assessment & Plan (1) Bilateral cellulitis of lower leg Status: Acute (2) Deep venous thrombosis of lower extremity Status: Acute Priority: High (3) Heroin abuse Status: Chronic (4) Alcohol abuse Status: Acute - Assessment and Plan (Free Text) Assessment: 52 year old male patient with a PMHx of diabetes and heroin abuse presents to the ER with complaints of painful, swollen legs. Patient reports that he can not walk properly and did not check his glucose and is not sure if it is high. His last heroin use was this morning. Patient denies fever, chills, dizziness, or abdominal pain. IV antibioitics ordered recc : vascular eval
--- NOTE | 2018-01-11 14:08 | PCM.PSYCH ---
Initial Psychiatric Evaluation - Initial Psychiatric Evaluation Type of Admission: Voluntary Legal Status: Capacity Chief Complaint (in patient's own words): "I have pain" History of Present Illness and Precipitating Events: The patient is seen, chart reviewed and case discussed. Consultation was requested for his psych issues. He is known to the insurance underwriter from a detox admission recently. This is a 52-year-old -[place] male, homeless, unemployed, single with 3 children. He is here for cellulitis. He admits to using heroin every 2 or 3 days and only 3 bags intranasally. He denies all other drug and alcohol use. Urine toxicology is pending. As per chart, he had a significant Xanax dependence but now he states he only takes "sometimes." He also reports feeling depressed but not suicidal, and he denies feeling paranoid and no hallucinations elicited. He reports significant anxiety. He was diagnosed with schizophrenia in the past. Past psych history: 3 admissions. No recent suicide attempts. Family psych history: Mother had depression. Medical history: Cellulitis, diabetes, hepatitis C Current Medications: Active Medications Generic Name Dose Route Start Last Admin Trade Name Cedq PRN Reason Stop Dose Admin Enoxaparin Sodium 90 mg 01/11/18 10:00 01/11/18 10:52 Lovenox SC 90 mg DAILY HEIDI Administration Piperacillin Sod/Tazobactam 100 mls @ 200 mls/hr 01/11/18 02:00 01/11/18 10: 51 Sod 3.375 gm/ Sodium Chloride IVPB 200 mls/hr Q8H HEIDI Administration Protocol Vancomycin HCl 1 gm/ Sodium 200 mls @ 133.333 mls/hr 01/11/18 00:15 01/11/18 00:22 Chloride IVPB Not Given Q24H HEIDI Protocol Insulin Aspart 1 unit 01/11/18 07:30 01/11/18 11:56 Novolog SC Not Given ACHS HEIDI Protocol Pneumococcal Polyvalent Vaccine 0.5 ml 01/13/18 14:00 Pneumovax 23 Vaccine IM 01/13/18 14:01 .ONCE ONE Quetiapine Fumarate 300 mg 01/11/18 22:00 Seroquel PO HS HEIDI Trazodone HCl 50 mg 01/11/18 22:00 Desyrel PO HS HEIDI Past Psychiatric History - Past Psychiatric History Previous Treatment History: Inpatient Pertinent Medical Hx (Current Medical&Sleep Prob, Allergies): Allergies Allergy/AdvReac Type Severity Reaction Status Date / Time ibuprofen [From Motrin] Allergy Intermediate Verified 01/06/18 20:17 tomato Allergy Intermediate Verified 01/06/18 20:17 QUEtiapine [SEROquel] 300 mg PO DAILY 01/06/18 traZODone [trazODONE HYDROCHLORIDE] 50 mg PO DAILY 01/06/18 MetFORMIN 01/10/18 Xarelto 01/10/18 Review of Systems - Psychiatric Psychiatric: Abnormal Sleep Pattern, Anhedonia, Anxiety, Depression, Difficulty Concentrating. absent: Hallucinations, Paranoia, Suicidal Ideation Mental Status Examination - Personal Presentation Personal Presentation: Looks older than stated age - Affect Affect: Constricted - Motor Activity Motor Activity: Calm - Reliability in Providing Information Reliability in Providing Information: Good - Speech Speech: Organized - Mood Mood: Depressed, Anxious - Formal Thought Process Formal Thought Process: No Impairment - Cognitive Functions Orientation: Person, Place, Situation, Time Sensorium: Alert Attention/Concentration: Attentive Abstract Thinking: [place] Estimate of Intelligence: Below average Judgement: Imparied, as evidence by: Poor judgement (He eloped from the hospital ) Memory: Recent intact, as evidence by: Ability to recall events of the day, Remote intact, as evidenced by: Abilit to recall sig. life events - Risk Risk: Withdrawal, Diminished functioning - Strength & Assets Inventory Strength & Assets Inventory: Cooperative - Limitations Limitations: Living alone, Other DSM 5 DX - DSM 5 DSM 5 Diagnosis: Schizoaffective disorder, depressed Anxiety disorder, unspecified\\ Opioid use disorder, severe Sedative, hypnotic or anxiolytic use disorder, moderate - Recommended/Plan of Treatment Treatment Recommendations and Plan of Treatment: Taper with methadone when he starts to withdraw; first dose can be 10 mg as he is not using too much Gabapentin for augmentation if needed Seroquel 300 for schizoaffective disorder; he states he was taking it every day. As needed medications All risks, benefits and alternatives of the meds discussed, and the pt agreed and understood. Supportive therapy and psychoeducation VT for abstinence Encourage MAT Refer to rehab or IOP, and self-help groups Smoking cessation with VT Nicotine patch if needed 33 min
--- NOTE | 2018-01-11 17:18 | CP.PCM.HP ---
History of Present Illness - History of Present Illness History of Present Illness: 52 year old homeless man with prior history of heroin abuse presents to the ED c /o chronic leg swelling. 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 Patient was treated with IV antibiotics and lovenox. Patient states he was discharged 2 days ago and has not improved, patient reports "no meds given and does not know what to do". Patient denies injury, fall, trauma, CP, SOB, weakness, numbness. Review of hospital records show that patient eloped from the hospital. Present on Admission - Present on Admission Any Indicators Present on Admission: Yes History of DVT/PE: Yes History of Uncontrolled Diabetes: No Urinary Catheter: No Decubitus Ulcer Present: No Review of Systems - Review of Systems All systems: reviewed and no additional remarkable complaints except (As mentioned in HPI) Past Patient History - Infectious Disease Hx of Infectious Diseases: None - Past Medical History & Family History Past Medical History?: Yes - Past Social History Smoking Status: Light Smoker < 10 Cigarettes Daily - CARDIAC Hx Cardiac Disorders: Yes Hx Hypercholesterolemia: Yes Hx Hypertension: Yes - PULMONARY Hx Respiratory Disorders: No Hx Tuberculosis: No - NEUROLOGICAL Hx Neurological Disorder: No Hx Seizures: No - HEENT Hx HEENT Problems: No - RENAL Hx Chronic Kidney Disease: No - ENDOCRINE/METABOLIC Hx Endocrine Disorders: Yes (DMII) Hx Diabetes Mellitus Type 2: Yes - HEMATOLOGICAL/ONCOLOGICAL Hx Blood Disorders: No Hx Human Immunodeficiency Virus (HIV): No - INTEGUMENTARY Hx Dermatological Problems: No - MUSCULOSKELETAL/RHEUMATOLOGICAL Hx Musculoskeletal Disorders: No Hx Falls: No - GASTROINTESTINAL Hx Gastrointestinal Disorders: No - GENITOURINARY/GYNECOLOGICAL Hx Genitourinary Disorders: No Hx Sexually Transmitted Disorders: No - PSYCHIATRIC Hx Psychophysiologic Disorder: Yes Hx Anxiety: Yes Hx Bipolar Disorder: Yes Hx Depression: Yes Hx Schizophrenia: Yes Hx Substance Use: Yes (Heroin) - SURGICAL HISTORY Hx Surgeries: Yes Hx Vascular Surgery: Yes Hx Vascular Access Device: Yes Other/Comment: Vena Cava Filter - ANESTHESIA Hx Anesthesia: Yes Hx Anesthesia Reactions: No Hx Malignant Hyperthermia: No Meds Allergies/Adverse Reactions: Allergies Allergy/AdvReac Type Severity Reaction Status Date / Time ibuprofen [From Motrin] Allergy Intermediate Verified 01/06/18 20:17 tomato Allergy Intermediate Verified 01/06/18 20:17 Physical Exam - Head Exam Head Exam: NORMAL INSPECTION - Eye Exam Eye Exam: Normal appearance - ENT Exam ENT Exam: Mucous Membranes Moist - Respiratory Exam Respiratory Exam: Clear to Auscultation Bilateral Results - Vital Signs Recent Vital Signs: Last Vital Signs Temp 97.9 F 01/11/18 15:55 Pulse 84 01/11/18 15:55 Resp 20 01/11/18 15:55 BP 129/78 01/11/18 15:55 Pulse Ox 98 01/11/18 15:55 - Labs Result Diagrams: 01/11/18 00:45 01/11/18 00:45 Labs: Laboratory Results - last 24 hr 01/11/18 01/11/18 00:45 00:45 WBC 6.5 D RBC 4.25 L Hgb 13.4 Hct 40.1 MCV 94.3 H MCH 31.6 H MCHC 33.6 RDW 14.6 H Plt Count 292 MPV 6.7 L Neut % (Auto) 60.3 Lymph % (Auto) 21.5 [place] % (Auto) 12.2 H Eos % (Auto) 4.5 H Baso % (Auto) 1.5 Neut # (Auto) 3.9 Lymph # (Auto) 1.4 [place] # (Auto) 0.8 Eos # (Auto) 0.3 Baso # (Auto) 0.1 Sodium 138 Potassium 3.8 Chloride 99 Carbon Dioxide 25 Anion Gap 17 BUN 9 Creatinine 1.0 Est GFR ( Amer) > 60 Est GFR (Non-Af Amer) > 60 Random Glucose 118 H Calcium 8.9 Total Bilirubin 0.6 AST 35 ALT 33 Alkaline Phosphatase 76 Total Protein 8.5 H Albumin 4.5 Globulin 4.0 H Albumin/Globulin Ratio 1.1 Assessment & Plan (1) Bilateral cellulitis of lower leg Status: Acute (2) Deep venous thrombosis of lower extremity Status: Acute Priority: High (3) Heroin abuse Status: Chronic (4) Alcohol abuse Status: Acute
[2018-01-11 19:34] LABS: SQUAMOUS EPITHIAL < 1 /hpf (0-5)
[2018-01-11 19:35] LABS: URINE BILIRUBIN NEGATIVE (NEGATIVE); URINE BLOOD NEGATIVE (NEGATIVE); URINE CLARITY Clear (Clear); URINE COLOR Yellow (YELLOW); URINE GLUCOSE (UA) NORMAL (Normal); URINE LEUKOCYTE ESTERASE NEG Leu/uL (Negative); URINE PROTEIN NEGATIVE (NEGATIVE); URINE UROBILINOGEN NORMAL mg/dL (0.2-1.0)
[2018-01-11 19:43] LABS: BARBITURATES, UR NEGATIVE (NEGATIVE); PHENCYCLIDINE, UR NEGATIVE (NEGATIVE)
[2018-01-11 19:45] LABS: BENZODIAZEPINES, UR POSITIVE (NEGATIVE); OPIATES, UR POSITIVE (NEGATIVE)
[2018-01-12] MEDS: Vancomycin 1 GM in Sodium Chloride 0.9% 200 ML IVPB SCH (00:04)
[2018-01-12] MEDS: Piperacillin/Tazobact 3.375 GM in Sodium Chloride 100 ML IVPB SCH ×3 (01:42→17:52)
[2018-01-12] MEDS: (Novolog) Insulin Aspart, Recombinant 100 u/ml 10 ml vial SC SCH ×4 (07:32→21:48)
[2018-01-12] MEDS: Enoxaparin 100 mg Syringe SC SCH (09:46)
--- NOTE | 2018-01-12 12:37 | CP.PCM.PN ---
Subjective - Date & Time of Evaluation Date of Evaluation: 01/12/18 Time of Evaluation: 08:00 - Subjective Subjective: both legs remain swollen left > right Objective - Vital Signs/Intake and Output Vital Signs (last 24 hours): Temp Pulse Resp BP Pulse Ox 97.8 F 89 20 135/87 99 01/12/18 07:30 01/12/18 07:30 01/12/18 07:30 01/12/18 07:30 01/12/18 07:30 Intake and Output: 01/12/18 01/12/18 06:59 18:59 Intake Total 400 Balance 400 - Medications Medications: Current Medications Enoxaparin Sodium (Lovenox) 90 mg SC DAILY [facility] Last Admin: 01/12/18 09:46 Dose: 90 mg Gabapentin (Neurontin) 300 mg PO TID [facility] Last Admin: 01/12/18 09:46 Dose: 300 mg Piperacillin Sod/Tazobactam (Sod 3.375 gm/ Sodium Chloride) 100 mls @ 200 mls/ hr IVPB Q8H HEIDI PRN Reason: Protocol Last Admin: 01/12/18 09:46 Dose: 200 mls/hr Vancomycin HCl 1 gm/ Sodium (Chloride) 200 mls @ 133.333 mls/hr IVPB Q24H HEIDI PRN Reason: Protocol Last Admin: 01/12/18 00:04 Dose: 133.333 mls/hr Insulin Aspart (Novolog) 0 unit SC ACHS HEIDI PRN Reason: Protocol Last Admin: 01/12/18 07:32 Dose: Not Given Lorazepam (Ativan) 1 mg PO Q8H PRN PRN Reason: severe anxiety Pneumococcal Polyvalent Vaccine (Pneumovax 23 Vaccine) 0.5 ml IM .ONCE ONE Stop: 01/13/18 14:01 Quetiapine Fumarate (Seroquel) 300 mg PO HS [facility] Last Admin: 01/11/18 22:25 Dose: 300 mg Trazodone HCl (Desyrel) 50 mg PO HS [facility] Last Admin: 01/11/18 22:25 Dose: 50 mg - Labs Labs: 01/11/18 00:45 01/11/18 00:45 - Constitutional Appears: Non-toxic, Chronically Ill - Head Exam Head Exam: NORMOCEPHALIC - Eye Exam Eye Exam: PERRL - ENT Exam ENT Exam: Mucous Membranes Dry - Neck Exam Neck Exam: absent: Lymphadenopathy - Respiratory Exam Respiratory Exam: Decreased Breath Sounds - Cardiovascular Exam Cardiovascular Exam: REGULAR RHYTHM - GI/Abdominal Exam GI & Abdominal Exam: Distended, Soft - Rectal Exam Rectal Exam: Deferred - Exam Exam: NORMAL INSPECTION Assessment and Plan (1) Bilateral cellulitis of lower leg Status: Acute (2) Deep venous thrombosis of lower extremity Status: Acute (3) Heroin abuse Status: Chronic (4) Alcohol abuse Status: Acute - Assessment and Plan (Free Text) Assessment: 52-year-old -Turk[place] male, homeless, unemployed, single with 3 children. He is here for cellulitis. He admits to using heroin every 2 or 3 days and only 3 bags intranasally. afeb on IV antibiotics recc: vascular consult , dopplers
--- NOTE | 2018-01-12 18:30 | CP.PCM.PN ---
Subjective - Date & Time of Evaluation Date of Evaluation: 01/12/18 Time of Evaluation: 18:30 Objective - Vital Signs/Intake and Output Vital Signs (last 24 hours): Temp Pulse Resp BP Pulse Ox 98.2 F 94 H 20 126/84 100 01/12/18 15:52 01/12/18 15:52 01/12/18 15:52 01/12/18 15:52 01/12/18 15:52 Intake and Output: 01/12/18 01/12/18 06:59 18:59 Intake Total 400 Balance 400 - Medications Medications: Current Medications Enoxaparin Sodium (Lovenox) 90 mg SC DAILY [facility] Last Admin: 01/12/18 09:46 Dose: 90 mg Gabapentin (Neurontin) 300 mg PO TID [facility] Last Admin: 01/12/18 17:52 Dose: Not Given Piperacillin Sod/Tazobactam (Sod 3.375 gm/ Sodium Chloride) 100 mls @ 200 mls/ hr IVPB Q8H HEIDI PRN Reason: Protocol Last Admin: 01/12/18 17:52 Dose: 200 mls/hr Vancomycin HCl 1 gm/ Sodium (Chloride) 200 mls @ 133.333 mls/hr IVPB Q24H HEIDI PRN Reason: Protocol Last Admin: 01/12/18 00:04 Dose: 133.333 mls/hr Insulin Aspart (Novolog) 0 unit SC ACHS HEIDI PRN Reason: Protocol Last Admin: 01/12/18 17:30 Dose: 2 units Lorazepam (Ativan) 1 mg PO Q8H PRN PRN Reason: severe anxiety Pneumococcal Polyvalent Vaccine (Pneumovax 23 Vaccine) 0.5 ml IM .ONCE ONE Stop: 01/13/18 14:01 Quetiapine Fumarate (Seroquel) 300 mg PO HS [facility] Last Admin: 01/11/18 22:25 Dose: 300 mg Trazodone HCl (Desyrel) 50 mg PO HS [facility] Last Admin: 01/11/18 22:25 Dose: 50 mg - Labs Labs: 01/11/18 00:45 01/11/18 00:45 Assessment and Plan (1) Bilateral cellulitis of lower leg Status: Acute (2) Deep venous thrombosis of lower extremity Status: Acute (3) Heroin abuse Status: Chronic (4) Alcohol abuse Status: Acute
[2018-01-13] MEDS: Vancomycin 1 GM in Sodium Chloride 0.9% 200 ML IVPB SCH (00:17)
[2018-01-13 01:53] VITALS: BP 169/82; PULSE 92; TEMP 98.1; O2SAT 97
[2018-01-13] MEDS: Piperacillin/Tazobact 3.375 GM in Sodium Chloride 100 ML IVPB SCH (01:56)
--- NOTE | 2018-01-13 07:29 | CP.PCM.CON ---
History of Present Illness - History of Present Illness History of Present Illness: Vascular Surgery Consult Note for Dr. Larkin This is a 52M with a PMH of chronic DVT, Polypsych history, active heroin user and smoker. He reports he first had a DVT in his left leg 6 years ago. He was placed on warfarin however on warfarin he developed a DVT in the contralateral limb.He was then placed on xarelto however the DVT did not resolve. In 2012 a DVT filter was placed by Dr. Adhikari. Since that time he was also placed on eloquise and the DVTs have not resolved. He reports he ambulated however it is minimal due to pain. He complains of widespread and diffuse pain in his bilateral lower extremities. pmh: chronic dvt, hcv, hyn, heroin, hld, schizophrena, bipolar psh: ivc filter all:ibuprofen Review of Systems - Review of Systems All systems: reviewed and no additional remarkable complaints except Review of Systems: 12 pt review of symptoms negative except for pain in the bilateral lowe4 extremities Past Patient History - Infectious Disease Hx of Infectious Diseases: None - Past Medical History & Family History Past Medical History?: Yes - Past Social History Smoking Status: Light Smoker < 10 Cigarettes Daily - CARDIAC Hx Cardiac Disorders: Yes Hx Hypercholesterolemia: Yes Hx Hypertension: Yes - PULMONARY Hx Respiratory Disorders: No Hx Tuberculosis: No - NEUROLOGICAL Hx Neurological Disorder: No Hx Seizures: No - HEENT Hx HEENT Problems: No - RENAL Hx Chronic Kidney Disease: No - ENDOCRINE/METABOLIC Hx Endocrine Disorders: Yes (DMII) Hx Diabetes Mellitus Type 2: Yes - HEMATOLOGICAL/ONCOLOGICAL Hx Blood Disorders: No Hx Human Immunodeficiency Virus (HIV): No - INTEGUMENTARY Hx Dermatological Problems: No - MUSCULOSKELETAL/RHEUMATOLOGICAL Hx Musculoskeletal Disorders: No Hx Falls: No - GASTROINTESTINAL Hx Gastrointestinal Disorders: No - GENITOURINARY/GYNECOLOGICAL Hx Genitourinary Disorders: No Hx Sexually Transmitted Disorders: No - PSYCHIATRIC Hx Psychophysiologic Disorder: Yes Hx Anxiety: Yes Hx Bipolar Disorder: Yes Hx Depression: Yes Hx Schizophrenia: Yes Hx Substance Use: Yes (Heroin) - SURGICAL HISTORY Hx Surgeries: Yes Hx Vascular Surgery: Yes Hx Vascular Access Device: Yes Other/Comment: Vena Cava Filter - ANESTHESIA Hx Anesthesia: Yes Hx Anesthesia Reactions: No Hx Malignant Hyperthermia: No Meds Allergies/Adverse Reactions: Allergies Allergy/AdvReac Type Severity Reaction Status Date / Time ibuprofen [From Motrin] Allergy Intermediate Verified 01/06/18 20:17 tomato Allergy Intermediate Verified 01/06/18 20:17 - Medications Medications: Current Medications Enoxaparin Sodium (Lovenox) 90 mg SC DAILY [facility] Last Admin: 01/12/18 09:46 Dose: 90 mg Piperacillin Sod/Tazobactam (Sod 3.375 gm/ Sodium Chloride) 100 mls @ 200 mls/ hr IVPB Q8H HEIDI PRN Reason: Protocol Last Admin: 01/13/18 01:56 Dose: 200 mls/hr Vancomycin HCl 1 gm/ Sodium (Chloride) 200 mls @ 133.333 mls/hr IVPB Q24H HEIDI PRN Reason: Protocol Last Admin: 01/13/18 00:17 Dose: 133.333 mls/hr Insulin Aspart (Novolog) 0 unit SC ACHS [facility]I PRN Reason: Protocol Last Admin: 01/12/18 21:48 Dose: Not Given Lorazepam (Ativan) 1 mg PO Q8H PRN PRN Reason: severe anxiety Pneumococcal Polyvalent Vaccine (Pneumovax 23 Vaccine) 0.5 ml IM .ONCE ONE Stop: 01/13/18 14:01 Quetiapine Fumarate (Seroquel) 300 mg PO [facility] Last Admin: 01/12/18 21:53 Dose: 300 mg Trazodone HCl (Desyrel) 50 mg PO [facility] Last Admin: 01/12/18 21:53 Dose: 50 mg Physical Exam - Constitutional Appears: Non-toxic, No Acute Distress - Head Exam Head Exam: ATRAUMATIC, NORMOCEPHALIC - Eye Exam Eye Exam: EOMI - ENT Exam ENT Exam: Mucous Membranes Moist - Respiratory Exam Respiratory Exam: NORMAL BREATHING PATTERN - Cardiovascular Exam Cardiovascular Exam: +S1, +S2 - GI/Abdominal Exam GI & Abdominal Exam: Soft - Extremities Exam Additional comments: bilateral lower exremity errythema, tenderness and swelling Results - Vital Signs Recent Vital Signs: Last Vital Signs Temp 98.1 F 01/12/18 23:50 Pulse 92 H 01/12/18 23:50 Resp 20 01/12/18 23:50 BP 169/82 H 01/12/18 23:50 Pulse Ox 97 01/12/18 23:50 - Labs Result Diagrams: 01/11/18 00:45 01/11/18 00:45 Labs: Laboratory Results - last 24 hr 01/12/18 01/12/18 01/12/18 07:33 11:18 16:45 POC Glucose (mg/dL) 156 H 160 H Vancomycin Trough 11.4 H Assessment & Plan - Assessment and Plan (Free Text) Assessment: 52M with chronic dvts and cellulitis recommend elevation anticoagulation further recs per Dr. Chaya Zimmer PGY3
[2018-01-13] MEDS: (Novolog) Insulin Aspart, Recombinant 100 u/ml 10 ml vial SC SCH (07:35)
[2018-01-13] MEDS ORDERED: Pneumococcal 23-Valent Vaccine IM ONE (14:00)
== END 2018-01-13 08:59 | disposition left against medical advice (07) | DRG 603 ==
LOC: C.ER 22:28 → C.9E 23:32 → C.6T 01-11 00:44
PROVIDERS: ADMIT Internal Medicine Nephrology; ATTEND Internal Medicine Nephrology
DX: L03.115 Cellulitis of right lower limb (principal); I82.503 Chronic embolism and thrombosis of unspecified deep veins of lower extremity, bilateral; F11.20 Opioid dependence, uncomplicated; F13.20 Sedative, hypnotic or anxiolytic dependence, uncomplicated; L03.116 Cellulitis of left lower limb; F25.1 Schizoaffective disorder, depressive type; F17.210 Nicotine dependence, cigarettes, uncomplicated; I10 Essential (primary) hypertension; F10.10 Alcohol abuse, uncomplicated; E78.00 Pure hypercholesterolemia, unspecified; E11.9 Type 2 diabetes mellitus without complications; E78.5 Hyperlipidemia, unspecified; Z79.01 Long term (current) use of anticoagulants; Z59.0 Homelessness

== ENCOUNTER 2018-09-05 17:35 | Observation (INO) | payer MEDICARE, OTHER, MEDICAID | END 2018-09-09 16:35 | disposition home or self-care (01) | LOC: C.ER 17:35 → C.9E 20:59 → C.6T 23:42 → C.9E 23:42 → C.6T 23:49 ==

== ENCOUNTER 2018-10-22 15:40 | Emergency (ER) | payer MEDICARE, OTHER ==
[2018-10-22 15:41] VITALS: BMI 33.9
--- NOTE | 2018-10-22 16:24 | C.PDOC ---
History Of Present Illness 53 y/o male pt with hx of varicose veins presents to the ER c/o feeling a vein pop when walking today. Pt denies any other sx or complaints at this time. Pt reports he smokes marijuana, cigarettes and heroin today. Time Seen by Provider: 10/22/18 15:46 Chief Complaint (Nursing): Lower Extremity Problem/Injury History Per: Patient History/Exam Limitations: no limitations Onset/Duration Of Symptoms: Hrs Current Symptoms Are (Timing): Still Present Past Medical History Reviewed: Historical Data, Nursing Documentation, Vital Signs Vital Signs: Last Vital Signs Temp 98.2 F 10/22/18 15:46 Pulse 92 H 10/22/18 15:46 Resp 22 10/22/18 15:46 BP 123/84 10/22/18 15:46 Pulse Ox 97 10/22/18 15:46 - Medical History PMH: Anxiety, Bipolar Disorder, Depression, Diabetes, Deep Vein Thrombosis, Hepatitis (C), HTN, Hypercholesterolemia, Schizophrenia - [facility] Procedures CONTRAST PHLEBOGRAM-LEG (07/08/13) DETOXIFICATION SERVICES FOR SUBSTANCE ABUSE TREATMENT (12/03/17) HEMODIALYSIS (10/28/13) INJECT/INFUSE THROMBOLYTIC AGENT (10/24/13) PLICATION OF VENA CAVA (06/13/13) Family History: States: Unknown Family Hx - Social History Hx Tobacco Use: Yes Hx Alcohol Use: No Hx Substance Use: Yes - Immunization History Hx Tetanus Toxoid Vaccination: No (unk) Hx Influenza Vaccination: Yes Hx Pneumococcal Vaccination: (unk) Review Of Systems Constitutional: Positive for: Other (sensation of popped vein in leg ). Negative for: Fever, Chills Cardiovascular: Negative for: Chest Pain, Palpitations Respiratory: Negative for: Cough, Shortness of Breath Gastrointestinal: Negative for: Nausea, Vomiting, Abdominal Pain Genitourinary: Negative for: Dysuria, Frequency Skin: Negative for: Rash Neurological: Negative for: Weakness, Numbness Physical Exam - Physical Exam Appears: Non-toxic, No Acute Distress, Unkempt Skin: Warm, Dry Head: Normacephalic Chest: Symmetrical Cardiovascular: Rhythm Regular Respiratory: Normal Breath Sounds Gastrointestinal/Abdominal: Soft, No Tenderness, No Distention, No Guarding, No Rebound Back: No CVA Tenderness Extremity: Normal ROM (x4), No Calf Tenderness, Capillary Refill (<2 sec), No Deformity, No Swelling, Other (b/l legs venous stasis; left medial lower lex3 cm area with scattered shallow ulcer; no bleeding, non-purulent, no drainage or cellulitis) Neurological/Psych: Oriented x3, Normal Speech, Normal Motor, Normal Sensation ED Course And Treatment O2 Sat by Pulse Oximetry: 97 (RA) Pulse Ox Interpretation: Normal Medical Decision Making Medical Decision Making: Patient with shallow ulcer-like wounds to left lower leg, no signs of infection noted currently, however will give Rx for Keflex for prophylaxis. Patient stable for discharge. Disposition - Disposition Disposition: HOME/ ROUTINE Disposition Time: 17:02 Condition: STABLE Additional Instructions: ISELA CALLAWAY, thank you for letting us take care of you today. Your provider was Ijeoma Olivas MD and you were treated for LT LEG PAIN. The emergency medical care you received today was directed at your acute symptoms. If you were prescribed any medication, please fill it and take as directed. It may take several days for your symptoms to resolve. Return to the Emergency Department if your symptoms worsen, do not improve, or if you have any other problems. Please contact your doctor or call one of the physicians/clinics you have been referred to that are listed on the Patient Visit Information form that is included in your discharge packet. Bring any paperwork you were given at discharge with you along with any medications you are taking to your follow up visit. Our treatment cannot replace ongoing medical care by a primary care prov ider outside of the emergency department. Thank you for allowing the [facility] team to be part of your care today. If you had an X-Ray or CT scan: A Radiologist will review the ED reading if any change in treatment is needed we will contact you. If you had a blood, urine, or wound culture: It will take several days for the results, if any change in treatment is needed we will contact you. If you had an STI test: It will take 48 hours for the results. Please call after 1 week if you have not heard back. Prescriptions: Cephalexin [Keflex] 500 mg PO QID #28 capsule Instructions: Wound Care (DC) Forms: [employer] (Kiswahili) - Clinical Impression Clinical Impression: Leg wound, left - Scribe Statement The provider has reviewed the documentation as recorded by the Scribe [place] Do Provider Attestation: All medical record entries made by the Aiyana were at my direction and personally dictated by me. I have reviewed the chart and agree that the record accurately reflects my personal performance of the history, physical exam, medical decision making, and the department course for this patient. I have also personally directed, reviewed, and agree with the discharge instructions and d isposition.
[2018-10-22 17:02] VITALS: BP 142/89; PULSE 96; RESP 18; TEMP 98.4
[2018-10-22 23:24] VITALS: O2SAT 97
== END 2018-10-22 17:02 | disposition home or self-care (01) ==
LOC: C.ER 15:40
DX: S81.802A Unspecified open wound, left lower leg, initial encounter (principal); X58.XXXA Exposure to other specified factors, initial encounter